=== PATIENT | male | born 1955 | race Caucasian/White ===

== ENCOUNTER 2017-04-10 17:30 | Inpatient (IN) | payer MEDICARE, OTHER ==
[~2017-04-10] VITALS: Ht 182.9 cm; Wt 96.7 kg
[~2017-04-10 17:30] MED LIST: ATROPINE SULFATE 0.1 MG/ML 10 ML SYRINGE IVP ONE; ETOMIDATE 2 MG/ML 10 ML VIAL IVP ONE; SUCCINYLCHOLINE CHLORIDE 20 MG/ML 10 ML VIAL IVP ONE
[2017-04-10] MEDS ORDERED: PROPOFOL 1000 MG/ISO-OSM 100 ML IV ONE (17:40)
[2017-04-10] MEDS ORDERED: SUCCINYLCHOLINE CHLORIDE 20 MG/ML 10 ML VIAL IVP ONE (17:45)
[2017-04-10] MEDS ORDERED: ATROPINE SULFATE 0.1 MG/ML 10 ML SYRINGE IVP ONE (17:45)
[2017-04-10] MEDS ORDERED: ETOMIDATE 2 MG/ML 10 ML VIAL IVP ONE (17:45)
[2017-04-10] MEDS ORDERED: SODIUM CHLORIDE 0.9% 1,000 ML IV ONE (17:45)
[2017-04-10] MEDS ORDERED: 0.9% SODIUM CHLORIDE 10 ML SYRINGE IVP PRN ×2 (17:45→21:00)
[2017-04-10] MEDS ORDERED: ENOX40DI9 SQ (17:51)
[2017-04-10] MEDS ORDERED: POT25TAB5 PO (17:51)
[2017-04-10] MEDS ORDERED: SENN-175 PO (17:51)
[2017-04-10] MEDS ORDERED: NICO1PAT49 TD (17:51)
[2017-04-10] MEDS ORDERED: OXYC10 PO (17:51)
[2017-04-10] MEDS ORDERED: LEVO25TA9 PO (17:51)
[2017-04-10] MEDS ORDERED: LISI-662 PO (17:51)
[2017-04-10] MEDS ORDERED: METO25 PO (17:51)
[2017-04-10] MEDS ORDERED: ASPI81TA42 PO (17:51)
[2017-04-10] MEDS ORDERED: ALPR0.5T8 PO (17:51)
[2017-04-10] MEDS ORDERED: FURO20 PO (17:51)
[2017-04-10] MEDS ORDERED: IPRNEB IH (17:51)
[2017-04-10] MEDS ORDERED: ATOR40TA28 PO (17:51)
[2017-04-10 17:53] LABS: EOSINOPHILS % (AUTO) 2.3 % (1.0-6.0); HEMATOCRIT 40.4 % (41-53); HEMOGLOBIN 13.6 g/dL (13.5-17.5); LYMPHOCYTES # (AUTO) 1.5 K/uL (1.0-4.8); LYMPHOCYTES % (AUTO) 22.1 % (22.0-44.0); MEAN CORPUSCULAR HGB CONC 33.7 G/dL (31.0-37.0); MEAN CORPUSCULAR VOLUME 89 fL (80-100); MONOCYTES # (AUTO) 0.7 K/uL (0.1-1.0); MONOCYTES % (AUTO) 10.3 % (2.0-9.0); NEUTROPHILS # (AUTO) 4.4 K/uL (1.8-7.7); NEUTROPHILS % (AUTO) 64.3 % (40.0-70.0); PLATELET COUNT (AUTO) 125 K/uL (150-450); RED BLOOD CELL COUNT(AUTO) 4.54 MIL/uL (4.50-5.90); RED CELL DISTRIBUTION WIDTH 15.3 % (11.5-14.5)
[2017-04-10] MEDS ORDERED: PHENYLEPHRINE 200 MG/D5%-WATER 250 ML IV ONE (17:57)
[2017-04-10 17:58] LABS: APPEARANCE,URINE CLEAR (CLEAR); BILIRUBIN,URINE NEGATIVE (NEGATIVE); GLUCOSE, URINE (UA) NEGATIVE (NEGATIVE); KETONES,URINE NEGATIVE (NEGATIVE); LEUKOCYTE ESTERASE ,URINE NEGATIVE (NEGATIVE); NITRATE,URINE NEGATIVE (NEGATIVE); OCCULT BLOOD,URINE NEGATIVE (NEGATIVE); PROTEIN,URINE NEGATIVE (NEGATIVE); UROBILINOGEN,URINE 0.2 mg/dL (<=1.0)
[2017-04-10] MEDS ORDERED: KDUR10 PO (18:00)
[2017-04-10 18:02] LABS: AMPHET/METH SCREEN,URINE NEGATIVE (NEGATIVE); ANION GAP 5 mmol/L (8-16); BARBITURATE SCREEN, URINE NEGATIVE (NEGATIVE); BENZODIAZEPINES SCREEN,URINE POSITIVE (NEGATIVE); CALCIUM, TOTAL 8.8 mg/dL (8.8-10.5); CANNABINOID SCREEN,URINE NEGATIVE (NEGATIVE); CARBON DIOXIDE 29 mmol/L (22-29); CHLORIDE 103 mmol/L (98-107); COCAINE SCREEN,URINE NEGATIVE (NEGATIVE); CREATININE 1.02 mg/dL (0.60-1.30); GLOMERULAR FILTR. RATE CALC > 60 mL/min (>60); GLUCOSE,RANDOM 109 mg/dL (70-110); METHADONE SCREEN, URINE NEGATIVE (NEGATIVE); OPIATE SCREEN,URINE POSITIVE (NEGATIVE); POTASSIUM 5.5 mmol/L (3.5-5.1); SODIUM SERUM 137 mmol/L (136-145); UREA NITROGEN, BLOOD 25 mg/dL (7-18)
[2017-04-10 18:04] LABS: INR 1.1 (0.9-1.1); PHENCYCLIDINE SCREEN,URINE NEGATIVE (NEGATIVE); PROTHROMBIN TIME 11.4 SEC (9.4-11.6)
[2017-04-10 18:10] LABS: LACTIC ACID 1.7 mmol/L (0.4-2.0); TROPONIN I 0.03 ng/mL (0.00-0.05)
[2017-04-10] MEDS: PROPOFOL 1000 MG/ISO-OSM 100 ML IV PRN ×3 (18:13→23:08)
[2017-04-10] MEDS ORDERED: PHENYLEPHRINE 200 MG/D5%-WATER 250 ML IV PRN (18:15)
[2017-04-10 18:16] LABS: B-TYPE NATRIURETIC PEPTIDE 130 pg/mL (0-100)
[2017-04-10 18:20] LABS: ALANINE AMINOTRANSFERASE 162 U/L (12-78); ALBUMIN 3.2 g/dL (3.4-5.0); ALKALINE PHOSPHATASE 96 U/L (46-116); ASPARTATE AMINOTRANSFERASE 145 U/L (15-37); BILIRUBIN,TOTAL 0.7 mg/dL (0.1-1.0); TOTAL PROTEIN, SERUM 7.8 g/dL (6.4-8.2)
[2017-04-10 18:21] LABS: CREATINE KINASE, TOTAL 1545 U/L (39-308)
[2017-04-10 18:34] LABS: D-DIMER 0.42 mg/L FEU (0.00-0.50)
[2017-04-10] MEDS ORDERED: IOVERSOL 350 MG/ML 100 ML VIAL ONE (18:38)
[2017-04-10 18:41] LABS: CKMB RELATIVE INDEX 0.9 % (0.0-4.0); CREATINE KINASE MB 14.4 ng/mL (0-5)
[2017-04-10] MEDS ORDERED: [UNRECOGNIZED DRUG - CODE] TP (19:11)
[2017-04-10 19:49] LABS: ABG A-A DIFF O2 132.5 mmHg (10-20.0); ABG BASE EXCESS -0.2 mmol/L (-2.0-3.0); ABG CARBOXYHEMOGLOBIN 1.9 % (0.0-1.5); ABG HCO3 24.6 mmol/L (22.0-26.0); ABG METHEMOGLOBIN 0.3 % (0.0-1.5); ABG OXYGEN CONTENT 17.9 mL/dL (15.0-23.0); ABG OXYGEN SATURATION 98.4 % (95.0-98.0); ABG OXYHEMOGLOBIN 96.2 % (94.0-100.0); ABG PCO2 36 mmHg (35-45); ABG PH 7.438 (7.35-7.450); ABG TOTAL HEMOGLOBIN 13.1 G/dL (12.0-18.0); O2 DEVICE,BLOOD GAS VENTILATOR (ROOM AIR); PEEP,BG 5 cm H2O; PO2, ARTERIAL BG 111.1 mmHg (79.0-87.0); SITE, BLOOD GAS RT FEMORAL; SOURCE, BLOOD GAS ARTERIAL; TEMPERATURE, FAHRENHEIT, BG 98.5 FAHREN (96.0-98.6); VT, ABG 600 ml
[2017-04-10] MEDS ORDERED: ONDANSETRON HCL 4 MG/2 ML VIAL IVP PRN ×2 (21:00→21:15)
[2017-04-10] MEDS ORDERED: ACETAMINOPHEN 325 MG TABLET PO PRN (21:00)
[2017-04-10] MEDS ORDERED: ALBUTEROL SULFATE 2.5 MG/0.5 ML NEB SOLUTION NEB PRN (21:15)
[2017-04-10] MEDS ORDERED: IPRATROPIUM BROMIDE 0.5 MG/2.5 ML NEB SOLUTION NEB PRN (21:15)
[2017-04-10] MEDS ORDERED: BISACODYL 10 MG RECTAL RECTAL SUPPOSITORY PR PRN (21:15)
[2017-04-10 21:55] LABS: INFLUENZA TYPE A NEGATIVE FOR TYPE A (NEGATIVE); INFLUENZA TYPE B NEGATIVE FOR TYPE B (NEGATIVE)
[2017-04-10 22:00] VITALS: BP 135/79
[2017-04-10] MEDS: HEPARIN SODIUM,PORCINE 5,000 UNITS/ML VIAL SQ SCH (23:06)
[2017-04-10] MEDS: SODIUM CHLORIDE 0.9% 1,000 ML IV SCH (23:07)
[2017-04-11] VITALS: BP 108/59
[2017-04-11] MEDS ORDERED: INFLUENZA VIRUS VACCINE QVS 2017-18 (3YR+)/PF 60 MCG/0.5 ML SYRINGE IM ONE (00:45)
[2017-04-11] MEDS ORDERED: PNEUMOCOCCAL VACCINE POLYVALENT 0.5 ML VIAL [PPSV23] IM ONE (00:45)
[2017-04-11 04:00] VITALS: BP 164/104
[2017-04-11 06:31] LABS: BASOPHILS % (AUTO) 0.7 % (0.0-2.0); EOSINOPHILS % (AUTO) 1.7 % (1.0-6.0); HEMATOCRIT 42.8 % (41-53); HEMOGLOBIN 14.6 g/dL (13.5-17.5); LYMPHOCYTES % (AUTO) 16.7 % (22.0-44.0); MEAN CORPUSCULAR HGB CONC 34.2 G/dL (31.0-37.0); MEAN CORPUSCULAR VOLUME 91 fL (80-100); MONOCYTES # (AUTO) 0.5 K/uL (0.1-1.0); MONOCYTES % (AUTO) 8.8 % (2.0-9.0); NEUTROPHILS # (AUTO) 4.4 K/uL (1.8-7.7); NEUTROPHILS % (AUTO) 72.1 % (40.0-70.0); PLATELET COUNT (AUTO) 102 K/uL (150-450); RED BLOOD CELL COUNT(AUTO) 4.71 MIL/uL (4.50-5.90); RED CELL DISTRIBUTION WIDTH 15.4 % (11.5-14.5)
[2017-04-11] MEDS: LEVOTHYROXINE SODIUM 25 MCG TABLET PO SCH (07:24)
[2017-04-11] MEDS: SODIUM CHLORIDE 0.9% 1,000 ML IV SCH ×2 (07:26→16:09)
[2017-04-11] MEDS: PROPOFOL 1000 MG/ISO-OSM 100 ML IV PRN ×4 (07:26→18:58)
[2017-04-11 07:27] LABS: ALANINE AMINOTRANSFERASE 153 U/L (12-78); ALBUMIN 3.2 g/dL (3.4-5.0); ALKALINE PHOSPHATASE 95 U/L (46-116); ANION GAP 7 mmol/L (8-16); ASPARTATE AMINOTRANSFERASE 136 U/L (15-37); BILIRUBIN,TOTAL 0.8 mg/dL (0.1-1.0); CARBON DIOXIDE 26 mmol/L (22-29); CHLORIDE 104 mmol/L (98-107); CHOL/HDL RATIO 3.6 (4.2-7.3); CHOLESTEROL 115 mg/dL (131-200); CREATINE KINASE MB 6.2 ng/mL (0-5); CREATININE 0.84 mg/dL (0.60-1.30); FREE T4 (FREE THYROXINE) 1.05 ng/dL (0.76-1.46); GLOMERULAR FILTR. RATE CALC > 60 mL/min (>60); GLUCOSE,RANDOM 96 mg/dL (70-110); HDL CHOLESTEROL 32 mg/dL (40-60); LDL CHOL (CALC.) 60 mg/dL (0-130); PHOSPHORUS 2.7 mg/dL (2.5-4.9); POTASSIUM 4.6 mmol/L (3.5-5.1); SODIUM SERUM 137 mmol/L (136-145); THYROID STIMULATING HORMONE 22.81 uIU/mL (0.36-3.74); TOTAL PROTEIN, SERUM 7.9 g/dL (6.4-8.2); TRIGLYCERIDES 114 mg/dL (15-150); UREA NITROGEN, BLOOD 21 mg/dL (7-18)
[2017-04-11 07:36] LABS: CKMB RELATIVE INDEX 0.5 % (0.0-4.0); CREATINE KINASE, TOTAL 1359 U/L (39-308)
[2017-04-11] MEDS: ACETAMINOPHEN 650 MG/20.3 ML SOLUTION UDCUP PO PRN ×3 (07:46→21:18)
[2017-04-11 08:00] VITALS: BP 135/85
[2017-04-11] MEDS: PANTOPRAZOLE SODIUM 40 MG/VIAL IVP SCH (08:20)
[2017-04-11] MEDS: HEPARIN SODIUM,PORCINE 5,000 UNITS/ML VIAL SQ SCH (08:20)
[2017-04-11] MEDS: SENNA 187 MG TABLET PO SCH (08:21)
[2017-04-11] MEDS: ASPIRIN 81 MG EC TABLET PO SCH (08:21)
[2017-04-11] MEDS: PIPERACILLIN/TAZO 3.375 GM/D5W 50 ML IV SCH ×3 (08:23→21:18)
[2017-04-11 11:02] LABS: FOLATE SERUM 15.1 ng/mL (5.4-)
[2017-04-11 12:00] VITALS: BP 100/62
[2017-04-11 14:13] LABS: ABG A-A DIFF O2 122.1 mmHg (10-20.0); ABG BASE EXCESS -2.1 mmol/L (-2.0-3.0); ABG CARBOXYHEMOGLOBIN 1.1 % (0.0-1.5); ABG HCO3 23.3 mmol/L (22.0-26.0); ABG METHEMOGLOBIN 0.3 % (0.0-1.5); ABG OXYGEN CONTENT 17.1 mL/dL (15.0-23.0); ABG OXYGEN SATURATION 95.4 % (95.0-98.0); ABG OXYHEMOGLOBIN 94.1 % (94.0-100.0); ABG PCO2 36 mmHg (35-45); ABG PH 7.415 (7.35-7.450); ABG TOTAL HEMOGLOBIN 12.9 G/dL (12.0-18.0); PO2, ARTERIAL BG 84.2 mmHg (79.0-87.0); SOURCE, BLOOD GAS ARTERIAL; TEMPERATURE, FAHRENHEIT, BG 101.6 FAHREN (96.0-98.6)
[2017-04-11 14:14] LABS: O2 DEVICE,BLOOD GAS VENTILATOR (ROOM AIR); PEEP,BG 5 cm H2O; SITE, BLOOD GAS RT BRACHIAL; VT, ABG 600 ml
[2017-04-11] MEDS ORDERED: HEPARIN SODIUM,PORCINE 5,000 UNITS/ML VIAL IVP ONE (15:15)
[2017-04-11 16:00] VITALS: BP 131/66
[2017-04-11] MEDS: HEPARIN SODIUM 25000 UNITS/D5W 250 ML IV PRN (16:05)
[2017-04-11 16:17] LABS: BASOPHILS % (AUTO) 0.5 % (0.0-2.0); EOSINOPHILS % (AUTO) 1.1 % (1.0-6.0); HEMATOCRIT 42.2 % (41-53); HEMOGLOBIN 14.4 g/dL (13.5-17.5); LYMPHOCYTES % (AUTO) 11.2 % (22.0-44.0); MEAN CORPUSCULAR HEMOGLOBIN 30.3 pg (26.0-34.0); MEAN CORPUSCULAR VOLUME 89 fL (80-100); MONOCYTES # (AUTO) 1.3 K/uL (0.1-1.0); MONOCYTES % (AUTO) 15.7 % (2.0-9.0); NEUTROPHILS # (AUTO) 6.1 K/uL (1.8-7.7); NEUTROPHILS % (AUTO) 71.5 % (40.0-70.0); PLATELET COUNT (AUTO) 86 K/uL (150-450); RED BLOOD CELL COUNT(AUTO) 4.74 MIL/uL (4.50-5.90); RED CELL DISTRIBUTION WIDTH 15.3 % (11.5-14.5)
[2017-04-11 16:26] LABS: PROTHROMBIN TIME 10.8 SEC (9.4-11.6)
[2017-04-11] MEDS: MORPHINE SULFATE 2 MG/ML SYRINGE IVP PRN (16:29)
[2017-04-11 16:35] LABS: PLATELET MORPHOLOGY COMMENT DECREASED
[2017-04-11] MEDS ORDERED: DILTIAZEM HCL 5 MG/ML 5 ML VIAL IVP PRN (18:00)
[2017-04-11 20:00] VITALS: BP 131/76
[2017-04-12] VITALS: BP 108/62
[2017-04-12] MEDS: PROPOFOL 1000 MG/ISO-OSM 100 ML IV PRN ×4 (00:03→15:59)
[2017-04-12] MEDS: PIPERACILLIN/TAZO 3.375 GM/D5W 50 ML IV SCH ×4 (02:23→20:44)
[2017-04-12] MEDS: SODIUM CHLORIDE 0.9% 1,000 ML IV SCH ×2 (02:23→13:41)
[2017-04-12] MEDS: ACETAMINOPHEN 650 MG/20.3 ML SOLUTION UDCUP PO PRN ×2 (03:21→09:50)
[2017-04-12 04:00] VITALS: BP 113/63
[2017-04-12 05:33] LABS: BASOPHILS % (AUTO) 0.6 % (0.0-2.0); EOSINOPHILS % (AUTO) 1.1 % (1.0-6.0); HEMATOCRIT 37.5 % (41-53); LYMPHOCYTES # (AUTO) 0.8 K/uL (1.0-4.8); LYMPHOCYTES % (AUTO) 10.7 % (22.0-44.0); MEAN CORPUSCULAR HEMOGLOBIN 30.5 pg (26.0-34.0); MEAN CORPUSCULAR HGB CONC 34.6 G/dL (31.0-37.0); MEAN CORPUSCULAR VOLUME 88 fL (80-100); MONOCYTES # (AUTO) 1.1 K/uL (0.1-1.0); MONOCYTES % (AUTO) 15.3 % (2.0-9.0); NEUTROPHILS # (AUTO) 5.2 K/uL (1.8-7.7); NEUTROPHILS % (AUTO) 72.3 % (40.0-70.0); PLATELET COUNT (AUTO) 79 K/uL (150-450); RED BLOOD CELL COUNT(AUTO) 4.26 MIL/uL (4.50-5.90); RED CELL DISTRIBUTION WIDTH 14.8 % (11.5-14.5)
[2017-04-12] MEDS: LEVOTHYROXINE SODIUM 25 MCG TABLET PO SCH (05:57)
[2017-04-12] MEDS: HEPARIN SODIUM,PORCINE 5,000 UNITS/ML VIAL IVP PRN (05:57)
[2017-04-12] MEDS: PANTOPRAZOLE SODIUM 40 MG/VIAL IVP SCH (07:55)
[2017-04-12] MEDS: ASPIRIN 81 MG EC TABLET PO SCH (07:55)
[2017-04-12] MEDS: SENNA 187 MG TABLET PO SCH (07:56)
[2017-04-12 08:00] VITALS: BP 138/81
[2017-04-12] MEDS: HEPARIN SODIUM 25000 UNITS/D5W 250 ML IV PRN ×2 (08:39→21:34)
[2017-04-12 09:54] LABS: ABG A-A DIFF O2 91.8 mmHg (10-20.0); ABG BASE EXCESS -2.4 mmol/L (-2.0-3.0); ABG CARBOXYHEMOGLOBIN 0.6 % (0.0-1.5); ABG HCO3 23.4 mmol/L (22.0-26.0); ABG OXYGEN CONTENT 20.6 mL/dL (15.0-23.0); ABG OXYGEN SATURATION 98.3 % (95.0-98.0); ABG OXYHEMOGLOBIN 97.7 % (94.0-100.0); ABG PCO2 31 mmHg (35-45); ABG PH 7.458 (7.35-7.450); ABG TOTAL HEMOGLOBIN 14.9 G/dL (12.0-18.0); PO2, ARTERIAL BG 121.7 mmHg (79.0-87.0); SOURCE, BLOOD GAS ARTERIAL; TEMPERATURE, FAHRENHEIT, BG 98.6 FAHREN (96.0-98.6)
[2017-04-12 10:00] LABS: O2 DEVICE,BLOOD GAS VENTILATOR (ROOM AIR); PEEP,BG 5 cm H2O; SITE, BLOOD GAS RT RADIAL; VT, ABG 600 ml
[2017-04-12 12:00] VITALS: BP 100/66
[2017-04-12] MEDS ORDERED: VANCOMYCIN HCL 1.5 GM in DEXTROSE 5%-WATER 250 ML IV ONE (12:00)
[2017-04-12 16:00] VITALS: BP 160/94
[2017-04-12 20:00] VITALS: BP 177/93
[2017-04-12] MEDS: VANCOMYCIN HCL 1.5 GM in DEXTROSE 5%-WATER 250 ML IV SCH (20:18)
[2017-04-12] MEDS: MIDAZOLAM HCL 2 MG/2 ML VIAL IVP PRN (21:31)
[2017-04-13] VITALS (7 sets, daily range): BP systolic 130–179; BP diastolic 67–100
[2017-04-13] MEDS: SODIUM CHLORIDE 0.9% 1,000 ML IV SCH ×2 (00:07→17:17)
[2017-04-13] MEDS: PROPOFOL 1000 MG/ISO-OSM 100 ML IV PRN ×6 (00:47→23:42)
[2017-04-13] MEDS: PIPERACILLIN/TAZO 3.375 GM/D5W 50 ML IV SCH ×4 (03:15→21:11)
[2017-04-13] MEDS: LEVOTHYROXINE SODIUM 25 MCG TABLET PO SCH (05:50)
[2017-04-13 06:05] LABS: ANION GAP 9 mmol/L (8-16); CALCIUM, TOTAL 8.4 mg/dL (8.8-10.5); CARBON DIOXIDE 25 mmol/L (22-29); CHLORIDE 108 mmol/L (98-107); CREATININE 0.55 mg/dL (0.60-1.30); GLOMERULAR FILTR. RATE CALC > 60 mL/min (>60); GLUCOSE,RANDOM 165 mg/dL (70-110); POTASSIUM 3.7 mmol/L (3.5-5.1); SODIUM SERUM 142 mmol/L (136-145); UREA NITROGEN, BLOOD 7 mg/dL (7-18)
[2017-04-13] MEDS: VANCOMYCIN HCL 1.5 GM in DEXTROSE 5%-WATER 250 ML IV SCH ×2 (07:00→19:41)
[2017-04-13 07:07] LABS: BASOPHILS % (AUTO) 0.5 % (0.0-2.0); EOSINOPHILS % (AUTO) 1.8 % (1.0-6.0); HEMATOCRIT 35.6 % (41-53); HEMOGLOBIN 12.3 g/dL (13.5-17.5); LYMPHOCYTES # (AUTO) 0.9 K/uL (1.0-4.8); LYMPHOCYTES % (AUTO) 12.7 % (22.0-44.0); MEAN CORPUSCULAR HEMOGLOBIN 30.5 pg (26.0-34.0); MEAN CORPUSCULAR HGB CONC 34.4 G/dL (31.0-37.0); MEAN CORPUSCULAR VOLUME 89 fL (80-100); MONOCYTES # (AUTO) 0.6 K/uL (0.1-1.0); MONOCYTES % (AUTO) 8.9 % (2.0-9.0); NEUTROPHILS # (AUTO) 5.5 K/uL (1.8-7.7); NEUTROPHILS % (AUTO) 76.1 % (40.0-70.0); PLATELET COUNT (AUTO) 99 K/uL (150-450); RED BLOOD CELL COUNT(AUTO) 4.02 MIL/uL (4.50-5.90); RED CELL DISTRIBUTION WIDTH 14.8 % (11.5-14.5)
[2017-04-13] MEDS: ASPIRIN 81 MG EC TABLET PO SCH (08:38)
[2017-04-13] MEDS: PANTOPRAZOLE SODIUM 40 MG/VIAL IVP SCH (08:38)
[2017-04-13] MEDS: HEPARIN SODIUM,PORCINE 5,000 UNITS/ML VIAL IVP PRN (08:40)
[2017-04-13] MEDS: SENNA 187 MG TABLET PO SCH (08:42)
[2017-04-13] MEDS: HEPARIN SODIUM 25000 UNITS/D5W 250 ML IV PRN (11:52)
[2017-04-13] MEDS ORDERED: SODIUM CHLORIDE 0.9% 250 ML IV ONE (17:19)
[2017-04-13] MEDS: LORazepam 2 MG/ML VIAL IVP PRN (21:12)
[2017-04-14] VITALS (9 sets, daily range): BP systolic 108–172; BP diastolic 68–104
[2017-04-14] MEDS: HEPARIN SODIUM 25000 UNITS/D5W 250 ML IV PRN ×2 (02:03→16:38)
[2017-04-14] MEDS: PIPERACILLIN/TAZO 3.375 GM/D5W 50 ML IV SCH ×4 (02:57→20:34)
[2017-04-14] MEDS: PROPOFOL 1000 MG/ISO-OSM 100 ML IV PRN ×4 (02:57→19:48)
[2017-04-14] MEDS: LEVOTHYROXINE SODIUM 25 MCG TABLET PO SCH (05:48)
[2017-04-14 06:06] LABS: B-TYPE NATRIURETIC PEPTIDE 132 pg/mL (0-100)
[2017-04-14] MEDS: SODIUM CHLORIDE 0.9% 1,000 ML IV SCH ×2 (06:15→20:34)
[2017-04-14 06:16] LABS: ANION GAP 8 mmol/L (8-16); CALCIUM, TOTAL 8.3 mg/dL (8.8-10.5); CARBON DIOXIDE 24 mmol/L (22-29); CHLORIDE 108 mmol/L (98-107); CREATINE KINASE MB 1.8 ng/mL (0-5); CREATINE KINASE, TOTAL 117 U/L (39-308); CREATININE 0.47 mg/dL (0.60-1.30); GLOMERULAR FILTR. RATE CALC > 60 mL/min (>60); GLUCOSE,RANDOM 147 mg/dL (70-110); POTASSIUM 3.6 mmol/L (3.5-5.1); SODIUM SERUM 140 mmol/L (136-145); UREA NITROGEN, BLOOD 8 mg/dL (7-18); VANCOMYCIN,RANDOM 12.7 mcg/mL (25.0-50.0)
[2017-04-14] MEDS: VANCOMYCIN HCL 1.5 GM in DEXTROSE 5%-WATER 250 ML IV SCH (07:52)
[2017-04-14 08:05] LABS: ABG A-A DIFF O2 119.8 mmHg (10-20.0); ABG CARBOXYHEMOGLOBIN 0.7 % (0.0-1.5); ABG METHEMOGLOBIN 0.3 % (0.0-1.5); ABG OXYGEN CONTENT 15.7 mL/dL (15.0-23.0); ABG OXYGEN SATURATION 97.4 % (95.0-98.0); ABG OXYHEMOGLOBIN 96.4 % (94.0-100.0); ABG PCO2 34 mmHg (35-45); ABG PH 7.448 (7.35-7.450); ABG TOTAL HEMOGLOBIN 11.5 G/dL (12.0-18.0); PO2, ARTERIAL BG 90.2 mmHg (79.0-87.0); SOURCE, BLOOD GAS ARTERIAL; TEMPERATURE, FAHRENHEIT, BG 98.6 FAHREN (96.0-98.6)
[2017-04-14 08:09] LABS: O2 DEVICE,BLOOD GAS VENTILATOR (ROOM AIR); SITE, BLOOD GAS RT RADIAL; VT, ABG 600 ml
[2017-04-14 08:10] LABS: PEEP,BG 5 cm H2O
[2017-04-14] MEDS: PANTOPRAZOLE SODIUM 40 MG/VIAL IVP SCH (08:48)
[2017-04-14] MEDS: ASPIRIN 81 MG EC TABLET PO SCH (08:49)
[2017-04-14] MEDS: SENNA 187 MG TABLET PO SCH (08:49)
[2017-04-14] MEDS: MORPHINE SULFATE 2 MG/ML SYRINGE IVP PRN ×2 (10:36→19:47)
[2017-04-14 13:08] LABS: ORGANISM ID Not indicated.; S PNEUMO SOURCE Urine; STREP PNEUMONIAE AG URINE Negative (Negative); STREP.PNEUMO BODY FLUID CULT. Not Indicated
[2017-04-14 14:19] LABS: LEGIONELLA PNEUMO AG URINE Negative (Negative)
[2017-04-14] MEDS: VANCOMYCIN HCL 1 GM/D5% WATER 200 ML IV SCH (16:07)
[2017-04-14] MEDS: LORazepam 2 MG/ML VIAL IVP PRN ×2 (16:07→21:46)
[2017-04-15] VITALS: BP 123/69
[2017-04-15] MEDS: PROPOFOL 1000 MG/ISO-OSM 100 ML IV PRN ×6 (00:06→21:42)
[2017-04-15] MEDS: VANCOMYCIN HCL 1 GM/D5% WATER 200 ML IV SCH ×4 (01:07→23:14)
[2017-04-15] MEDS: LORazepam 2 MG/ML VIAL IVP PRN ×2 (02:50→19:16)
[2017-04-15] MEDS: PIPERACILLIN/TAZO 3.375 GM/D5W 50 ML IV SCH ×4 (02:51→20:13)
[2017-04-15] MEDS: HEPARIN SODIUM 25000 UNITS/D5W 250 ML IV PRN ×2 (03:58→20:14)
[2017-04-15 04:00] VITALS: BP 136/68
[2017-04-15] MEDS: SODIUM CHLORIDE 0.9% 1,000 ML IV SCH ×2 (05:16→20:12)
[2017-04-15] MEDS: LEVOTHYROXINE SODIUM 25 MCG TABLET PO SCH (05:16)
[2017-04-15 06:31] LABS: BASOPHILS % (AUTO) 0.9 % (0.0-2.0); EOSINOPHILS % (AUTO) 4.2 % (1.0-6.0); HEMATOCRIT 30.4 % (41-53); LYMPHOCYTES # (AUTO) 0.6 K/uL (1.0-4.8); LYMPHOCYTES % (AUTO) 19.1 % (22.0-44.0); MEAN CORPUSCULAR HEMOGLOBIN 30.8 pg (26.0-34.0); MEAN CORPUSCULAR VOLUME 88 fL (80-100); MONOCYTES # (AUTO) 0.2 K/uL (0.1-1.0); MONOCYTES % (AUTO) 8.4 % (2.0-9.0); NEUTROPHILS % (AUTO) 67.4 % (40.0-70.0); PLATELET COUNT (AUTO) 101 K/uL (150-450); RED BLOOD CELL COUNT(AUTO) 3.45 MIL/uL (4.50-5.90); RED CELL DISTRIBUTION WIDTH 14.8 % (11.5-14.5)
[2017-04-15 06:50] LABS: ANION GAP 7 mmol/L (8-16); CALCIUM, TOTAL 8.5 mg/dL (8.8-10.5); CARBON DIOXIDE 25 mmol/L (22-29); CHLORIDE 109 mmol/L (98-107); CREATININE 0.52 mg/dL (0.60-1.30); GLOMERULAR FILTR. RATE CALC > 60 mL/min (>60); GLUCOSE,RANDOM 139 mg/dL (70-110); POTASSIUM 3.5 mmol/L (3.5-5.1); SODIUM SERUM 141 mmol/L (136-145); UREA NITROGEN, BLOOD 7 mg/dL (7-18)
[2017-04-15 07:26] LABS: HEMOGLOBIN 10.6 g/dL (13.5-17.5)
[2017-04-15 08:00] VITALS: BP 134/79
[2017-04-15] MEDS: SENNA 187 MG TABLET PO SCH (09:00)
[2017-04-15] MEDS: ASPIRIN 81 MG EC TABLET PO SCH (09:23)
[2017-04-15] MEDS: PANTOPRAZOLE SODIUM 40 MG/VIAL IVP SCH (09:23)
[2017-04-15 12:00] VITALS: BP 186/103
[2017-04-15 12:28] LABS: ABG A-A DIFF O2 75.4 mmHg (10-20.0); ABG BASE EXCESS -1.3 mmol/L (-2.0-3.0); ABG CARBOXYHEMOGLOBIN 0.3 % (0.0-1.5); ABG HCO3 23.9 mmol/L (22.0-26.0); ABG METHEMOGLOBIN 0.3 % (0.0-1.5); ABG OXYGEN CONTENT 16.1 mL/dL (15.0-23.0); ABG OXYGEN SATURATION 98.7 % (95.0-98.0); ABG OXYHEMOGLOBIN 98.1 % (94.0-100.0); ABG PCO2 34 mmHg (35-45); ABG TOTAL HEMOGLOBIN 11.5 G/dL (12.0-18.0); CPAP, BG 0 cm H2O; O2 DEVICE,BLOOD GAS VENTILATOR (ROOM AIR); PO2, ARTERIAL BG 135.4 mmHg (79.0-87.0); PRESSURE SUPPORT, BG 8 cm H2O; SITE, BLOOD GAS LFT RADIAL; SOURCE, BLOOD GAS ARTERIAL; TEMPERATURE, FAHRENHEIT, BG 98.4 FAHREN (96.0-98.6); VENT MODE, BG CPAP (ROOM AIR)
[2017-04-15 16:00] VITALS: BP 120/69
[2017-04-15] MEDS: ACETYLCYSTEINE 20% 200 MG/ML 4 ML NEB SOLUTION NEB SCH ×2 (16:31→23:52)
[2017-04-15] MEDS: ALBUTEROL SULFATE 2.5 MG/0.5 ML NEB SOLUTION NEB SCH ×2 (16:31→23:52)
[2017-04-15 20:00] VITALS: BP 153/86
[2017-04-16] VITALS (9 sets, daily range): BP systolic 97–167; BP diastolic 56–97
[2017-04-16] MEDS: PROPOFOL 1000 MG/ISO-OSM 100 ML IV PRN ×5 (02:45→23:30)
[2017-04-16] MEDS: PIPERACILLIN/TAZO 3.375 GM/D5W 50 ML IV SCH ×3 (02:45→15:01)
[2017-04-16] MEDS: LORazepam 2 MG/ML VIAL IVP PRN ×3 (02:51→20:31)
[2017-04-16 04:36] LABS: C.DIFF GDH ANTIGEN, Stool Positive (Negative)
[2017-04-16 04:38] LABS: C.DIFF TOXINS A&B, Stool Negative (Negative)
[2017-04-16] MEDS: LEVOTHYROXINE SODIUM 25 MCG TABLET PO SCH (05:45)
[2017-04-16] MEDS: ACETYLCYSTEINE 20% 200 MG/ML 4 ML NEB SOLUTION NEB SCH ×3 (07:21→23:41)
[2017-04-16] MEDS: ALBUTEROL SULFATE 2.5 MG/0.5 ML NEB SOLUTION NEB SCH ×3 (07:21→23:41)
[2017-04-16] MEDS: SODIUM CHLORIDE 0.9% 1,000 ML IV SCH ×2 (08:24→19:02)
[2017-04-16] MEDS: PANTOPRAZOLE SODIUM 40 MG/VIAL IVP SCH (08:24)
[2017-04-16] MEDS: VANCOMYCIN HCL 1 GM/D5% WATER 200 ML IV SCH ×3 (08:24→23:31)
[2017-04-16] MEDS: ASPIRIN 81 MG EC TABLET PO SCH (08:25)
[2017-04-16] MEDS: LACTOBACILLUS ACIDOPHILUS/BULGARICUS GRANULES PACKET PO SCH (08:25)
[2017-04-16] MEDS: SENNA 187 MG TABLET PO SCH (08:25)
[2017-04-16] MEDS: HEPARIN SODIUM 25000 UNITS/D5W 250 ML IV PRN ×2 (08:27→20:30)
[2017-04-16 08:31] LABS: ANION GAP 7 mmol/L (8-16); CALCIUM, TOTAL 8.6 mg/dL (8.8-10.5); CARBON DIOXIDE 25 mmol/L (22-29); CHLORIDE 108 mmol/L (98-107); CREATININE 0.48 mg/dL (0.60-1.30); GLOMERULAR FILTR. RATE CALC > 60 mL/min (>60); GLUCOSE,RANDOM 137 mg/dL (70-110); POTASSIUM 3.6 mmol/L (3.5-5.1); SODIUM SERUM 140 mmol/L (136-145); UREA NITROGEN, BLOOD 7 mg/dL (7-18)
[2017-04-16] MEDS: HEPARIN SODIUM,PORCINE 5,000 UNITS/ML VIAL IVP PRN (09:40)
[2017-04-16] MEDS: MetroNIDAZOLE 500 MG TABLET PO SCH ×3 (10:53→23:32)
[2017-04-16] MEDS: MORPHINE SULFATE 2 MG/ML SYRINGE IVP PRN ×3 (12:58→18:59)
[2017-04-16] MEDS: MIDAZOLAM HCL 2 MG/2 ML VIAL IVP PRN (14:37)
[2017-04-16] MEDS ORDERED: HydrALAZINE HCL 20 MG/ML VIAL IVP PRN (16:45)
[2017-04-17] VITALS (14 sets, daily range): BP systolic 131–182; BP diastolic 55–116
[2017-04-17] MEDS: PROPOFOL 1000 MG/ISO-OSM 100 ML IV PRN ×4 (03:01→12:50)
[2017-04-17] MEDS: SODIUM CHLORIDE 0.9% 1,000 ML IV SCH ×3 (03:01→22:31)
[2017-04-17 05:32] LABS: BASOPHILS % (AUTO) 0.8 % (0.0-2.0); EOSINOPHILS % (AUTO) 2.4 % (1.0-6.0); HEMATOCRIT 32.6 % (41-53); HEMOGLOBIN 11.2 g/dL (13.5-17.5); LYMPHOCYTES # (AUTO) 0.6 K/uL (1.0-4.8); LYMPHOCYTES % (AUTO) 17.6 % (22.0-44.0); MEAN CORPUSCULAR HEMOGLOBIN 30.3 pg (26.0-34.0); MEAN CORPUSCULAR HGB CONC 34.4 G/dL (31.0-37.0); MEAN CORPUSCULAR VOLUME 88 fL (80-100); MONOCYTES # (AUTO) 0.3 K/uL (0.1-1.0); MONOCYTES % (AUTO) 8.8 % (2.0-9.0); NEUTROPHILS # (AUTO) 2.5 K/uL (1.8-7.7); NEUTROPHILS % (AUTO) 70.4 % (40.0-70.0); PLATELET COUNT (AUTO) 98 K/uL (150-450); RED CELL DISTRIBUTION WIDTH 14.6 % (11.5-14.5)
[2017-04-17 06:09] LABS: ALANINE AMINOTRANSFERASE 60 U/L (12-78); ALBUMIN 2.5 g/dL (3.4-5.0); ALKALINE PHOSPHATASE 71 U/L (46-116); ANION GAP 8 mmol/L (8-16); ASPARTATE AMINOTRANSFERASE 37 U/L (15-37); BILIRUBIN,TOTAL 0.3 mg/dL (0.1-1.0); CALCIUM, TOTAL 8.7 mg/dL (8.8-10.5); CARBON DIOXIDE 26 mmol/L (22-29); CHLORIDE 110 mmol/L (98-107); GLOMERULAR FILTR. RATE CALC > 60 mL/min (>60); GLUCOSE,RANDOM 118 mg/dL (70-110); POTASSIUM 3.5 mmol/L (3.5-5.1); SODIUM SERUM 144 mmol/L (136-145); TOTAL PROTEIN, SERUM 6.9 g/dL (6.4-8.2); UREA NITROGEN, BLOOD 6 mg/dL (7-18); VANCOMYCIN,RANDOM 21.6 mcg/mL (25.0-50.0)
[2017-04-17] MEDS: LEVOTHYROXINE SODIUM 25 MCG TABLET PO SCH (06:51)
[2017-04-17] MEDS: MIDAZOLAM HCL 2 MG/2 ML VIAL IVP PRN ×4 (07:37→23:31)
[2017-04-17] MEDS: ALBUTEROL SULFATE 2.5 MG/0.5 ML NEB SOLUTION NEB SCH (07:39)
[2017-04-17] MEDS: ACETYLCYSTEINE 20% 200 MG/ML 4 ML NEB SOLUTION NEB SCH (07:40)
[2017-04-17] MEDS: SENNA 187 MG TABLET PO SCH (09:00)
[2017-04-17] MEDS: VANCOMYCIN HCL 1 GM/D5% WATER 200 ML IV SCH ×2 (09:13→15:55)
[2017-04-17] MEDS: MORPHINE SULFATE 2 MG/ML SYRINGE IVP PRN ×5 (09:14→22:31)
[2017-04-17] MEDS: LACTOBACILLUS ACIDOPHILUS/BULGARICUS GRANULES PACKET PO SCH (09:14)
[2017-04-17] MEDS: MetroNIDAZOLE 500 MG TABLET PO SCH ×3 (09:14→23:32)
[2017-04-17] MEDS: PANTOPRAZOLE SODIUM 40 MG/VIAL IVP SCH (09:14)
[2017-04-17] MEDS: ASPIRIN 81 MG EC TABLET PO SCH (09:14)
[2017-04-17] MEDS: HEPARIN SODIUM 25000 UNITS/D5W 250 ML IV PRN (10:16)
[2017-04-17 14:40] LABS: ABG A-A DIFF O2 71.8 mmHg (10-20.0); ABG BASE EXCESS -3.4 mmol/L (-2.0-3.0); ABG CARBOXYHEMOGLOBIN 0.3 % (0.0-1.5); ABG HCO3 22.2 mmol/L (22.0-26.0); ABG OXYGEN CONTENT 15.5 mL/dL (15.0-23.0); ABG OXYGEN SATURATION 98.5 % (95.0-98.0); ABG OXYHEMOGLOBIN 98.2 % (94.0-100.0); ABG PCO2 33 mmHg (35-45); ABG PH 7.426 (7.35-7.450); O2 DEVICE,BLOOD GAS VENTILATOR (ROOM AIR); PO2, ARTERIAL BG 139.9 mmHg (79.0-87.0); SITE, BLOOD GAS RT RADIAL; SOURCE, BLOOD GAS ARTERIAL; TEMPERATURE, FAHRENHEIT, BG 98.6 FAHREN (96.0-98.6); VENT MODE, BG SPONTANEOUS (ROOM AIR)
[2017-04-17 14:41] LABS: CPAP, BG 0 cm H2O; PEEP,BG 0 cm H2O; PRESSURE SUPPORT, BG 10 cm H2O; SPONTANEOUS VT, BG 410 ml
[2017-04-17] MEDS: AmLODIPine BESYLATE 10 MG TABLET PO SCH (16:36)
[2017-04-17] MEDS: LORazepam 2 MG/ML VIAL IVP PRN (19:55)
[2017-04-17] MEDS: AMINO ACIDS/PROTEIN HYDROLYS 30 ML TUBE PO SCH (20:38)
[2017-04-18] VITALS (11 sets, daily range): BP systolic 133–178; BP diastolic 64–103
[2017-04-18] MEDS: MORPHINE SULFATE 2 MG/ML SYRINGE IVP PRN ×5 (00:30→10:52)
[2017-04-18] MEDS: LORazepam 2 MG/ML VIAL IVP PRN ×3 (01:48→10:02)
[2017-04-18 05:35] LABS: ANION GAP 10 mmol/L (8-16); CALCIUM, TOTAL 8.9 mg/dL (8.8-10.5); CARBON DIOXIDE 25 mmol/L (22-29); CHLORIDE 108 mmol/L (98-107); CREATININE 0.52 mg/dL (0.60-1.30); GLOMERULAR FILTR. RATE CALC > 60 mL/min (>60); GLUCOSE,RANDOM 98 mg/dL (70-110); POTASSIUM 3.3 mmol/L (3.5-5.1); SODIUM SERUM 143 mmol/L (136-145); UREA NITROGEN, BLOOD 6 mg/dL (7-18)
[2017-04-18 05:39] LABS: BASOPHILS % (AUTO) 1.1 % (0.0-2.0); EOSINOPHILS % (AUTO) 2.3 % (1.0-6.0); HEMOGLOBIN 10.9 g/dL (13.5-17.5); LYMPHOCYTES % (AUTO) 21.3 % (22.0-44.0); MEAN CORPUSCULAR HEMOGLOBIN 30.3 pg (26.0-34.0); MEAN CORPUSCULAR HGB CONC 34.1 G/dL (31.0-37.0); MEAN CORPUSCULAR VOLUME 89 fL (80-100); MONOCYTES # (AUTO) 0.4 K/uL (0.1-1.0); MONOCYTES % (AUTO) 9.3 % (2.0-9.0); PLATELET COUNT (AUTO) 105 K/uL (150-450); RED CELL DISTRIBUTION WIDTH 14.6 % (11.5-14.5)
[2017-04-18] MEDS: LEVOTHYROXINE SODIUM 25 MCG TABLET PO SCH (05:45)
[2017-04-18] MEDS: HEPARIN SODIUM,PORCINE 5,000 UNITS/ML VIAL IVP PRN ×2 (06:55→23:11)
[2017-04-18] MEDS: AmLODIPine BESYLATE 10 MG TABLET PO SCH (07:49)
[2017-04-18] MEDS: ASPIRIN 81 MG EC TABLET PO SCH (07:49)
[2017-04-18] MEDS: LACTOBACILLUS ACIDOPHILUS/BULGARICUS GRANULES PACKET PO SCH (07:49)
[2017-04-18] MEDS: MULTIVITAMINS WITH MINERALS, THERAPEUTIC 15 ML UDCUP PO SCH (07:49)
[2017-04-18] MEDS: AMINO ACIDS/PROTEIN HYDROLYS 30 ML TUBE PO SCH ×2 (07:50→21:00)
[2017-04-18] MEDS: SENNA 187 MG TABLET PO SCH (07:50)
[2017-04-18] MEDS: VANCOMYCIN HCL 1 GM/D5% WATER 200 ML IV SCH ×4 (08:00→15:33)
[2017-04-18] MEDS: SODIUM CHLORIDE 0.9% 1,000 ML IV SCH ×2 (08:01→21:43)
[2017-04-18] MEDS: MetroNIDAZOLE 500 MG TABLET PO SCH ×2 (08:12→15:32)
[2017-04-18] MEDS: PANTOPRAZOLE SODIUM 40 MG/VIAL IVP SCH (08:12)
[2017-04-18] MEDS ORDERED: POTASSIUM CHLORIDE 10% 40 MEQ/30 ML LIQUID UDCUP PO PRN (08:30)
[2017-04-18] MEDS ORDERED: POTASSIUM CHLORIDE 20 MEQ ER TABLET PO PRN (08:30)
[2017-04-18] MEDS: POTASSIUM CHL 10 MEQ/WATER 50 ML IV PRN ×6 (08:50→15:33)
[2017-04-18] MEDS: HALOPERIDOL LACTATE 5 MG/ML VIAL IVP PRN (12:04)
[2017-04-18] MEDS: HEPARIN SODIUM 25000 UNITS/D5W 250 ML IV PRN ×2 (13:52→23:10)
[2017-04-18] MEDS ORDERED: SODIUM CHLORIDE 0.9% 500 ML IV ONE (13:59)
[2017-04-19 00:31] VITALS: BP 150/87
[2017-04-19] MEDS: VANCOMYCIN HCL 1 GM/D5% WATER 200 ML IV SCH ×2 (01:05→08:11)
[2017-04-19 06:26] LABS: BASOPHILS % (AUTO) 1.1 % (0.0-2.0); EOSINOPHILS % (AUTO) 1.9 % (1.0-6.0); HEMATOCRIT 35.4 % (41-53); HEMOGLOBIN 12.4 g/dL (13.5-17.5); LYMPHOCYTES % (AUTO) 20.3 % (22.0-44.0); MEAN CORPUSCULAR HEMOGLOBIN 30.7 pg (26.0-34.0); MEAN CORPUSCULAR VOLUME 88 fL (80-100); MONOCYTES # (AUTO) 0.4 K/uL (0.1-1.0); MONOCYTES % (AUTO) 8.7 % (2.0-9.0); NEUTROPHILS # (AUTO) 3.4 K/uL (1.8-7.7); PLATELET COUNT (AUTO) 114 K/uL (150-450); RED BLOOD CELL COUNT(AUTO) 4.03 MIL/uL (4.50-5.90); RED CELL DISTRIBUTION WIDTH 14.7 % (11.5-14.5)
[2017-04-19] MEDS: LEVOTHYROXINE SODIUM 25 MCG TABLET PO SCH (06:30)
[2017-04-19 06:40] LABS: ALANINE AMINOTRANSFERASE 59 U/L (12-78); ALBUMIN 2.6 g/dL (3.4-5.0); ALKALINE PHOSPHATASE 63 U/L (46-116); ANION GAP 10 mmol/L (8-16); ASPARTATE AMINOTRANSFERASE 38 U/L (15-37); BILIRUBIN,TOTAL 0.5 mg/dL (0.1-1.0); CALCIUM, TOTAL 8.9 mg/dL (8.8-10.5); CARBON DIOXIDE 24 mmol/L (22-29); CHLORIDE 107 mmol/L (98-107); CREATININE 0.67 mg/dL (0.60-1.30); GLOMERULAR FILTR. RATE CALC > 60 mL/min (>60); GLUCOSE,RANDOM 94 mg/dL (70-110); POTASSIUM 3.5 mmol/L (3.5-5.1); SODIUM SERUM 141 mmol/L (136-145); TOTAL PROTEIN, SERUM 6.9 g/dL (6.4-8.2); UREA NITROGEN, BLOOD 10 mg/dL (7-18)
[2017-04-19] MEDS: HEPARIN SODIUM,PORCINE 5,000 UNITS/ML VIAL IVP PRN (06:59)
[2017-04-19] MEDS: HEPARIN SODIUM 25000 UNITS/D5W 250 ML IV PRN ×2 (06:59→21:44)
[2017-04-19] MEDS: SODIUM CHLORIDE 0.9% 1,000 ML IV SCH (07:00)
[2017-04-19] MEDS ORDERED: AMINO ACIDS/PROTEIN HYDROLYS 30 ML TUBE PO SCH ×5 (08:00→14:00)
[2017-04-19] MEDS: PANTOPRAZOLE SODIUM 40 MG/VIAL IVP SCH (08:12)
[2017-04-19] MEDS: AmLODIPine BESYLATE 10 MG TABLET PO SCH (08:13)
[2017-04-19] MEDS: LACTOBACILLUS ACIDOPHILUS/BULGARICUS GRANULES PACKET PO SCH (08:14)
[2017-04-19] MEDS: ASPIRIN 81 MG EC TABLET PO SCH (08:14)
[2017-04-19] MEDS: MetroNIDAZOLE 500 MG TABLET PO SCH ×3 (08:14→17:01)
[2017-04-19] MEDS: MULTIVITAMINS WITH MINERALS, THERAPEUTIC 15 ML UDCUP PO SCH (08:15)
[2017-04-19] MEDS: SENNA 187 MG TABLET PO SCH (08:19)
[2017-04-19 11:34] VITALS: BP 153/87
[2017-04-19] MEDS: HALOPERIDOL LACTATE 5 MG/ML VIAL IVP PRN ×2 (13:23→22:24)
[2017-04-19 15:01] VITALS: BP 146/89
[2017-04-19] MEDS: LORazepam 2 MG/ML VIAL IVP PRN (18:51)
[2017-04-19 20:09] VITALS: BP 137/69
[2017-04-20] MEDS: MetroNIDAZOLE 500 MG TABLET PO SCH ×3 (00:12→15:29)
[2017-04-20 00:23] VITALS: BP 146/78
[2017-04-20] MEDS: LORazepam 2 MG/ML VIAL IVP PRN ×3 (01:23→22:03)
[2017-04-20 06:09] VITALS: BP 137/85
[2017-04-20] MEDS: LEVOTHYROXINE SODIUM 25 MCG TABLET PO SCH (06:17)
[2017-04-20 06:39] LABS: ANION GAP 8 mmol/L (8-16); CALCIUM, TOTAL 8.8 mg/dL (8.8-10.5); CARBON DIOXIDE 26 mmol/L (22-29); CHLORIDE 107 mmol/L (98-107); CREATININE 0.68 mg/dL (0.60-1.30); GLOMERULAR FILTR. RATE CALC > 60 mL/min (>60); GLUCOSE,RANDOM 111 mg/dL (70-110); POTASSIUM 3.3 mmol/L (3.5-5.1); SODIUM SERUM 141 mmol/L (136-145); UREA NITROGEN, BLOOD 14 mg/dL (7-18)
[2017-04-20 07:15] VITALS: BP 135/78
[2017-04-20] MEDS: HEPARIN SODIUM,PORCINE 5,000 UNITS/ML VIAL IVP PRN (07:57)
[2017-04-20] MEDS: HEPARIN SODIUM 25000 UNITS/D5W 250 ML IV PRN ×3 (07:58→16:21)
[2017-04-20] MEDS: ASPIRIN 81 MG EC TABLET PO SCH (08:02)
[2017-04-20] MEDS: LACTOBACILLUS ACIDOPHILUS/BULGARICUS GRANULES PACKET PO SCH (08:02)
[2017-04-20] MEDS: PANTOPRAZOLE SODIUM 40 MG/VIAL IVP SCH (08:02)
[2017-04-20] MEDS: AmLODIPine BESYLATE 10 MG TABLET PO SCH (08:02)
[2017-04-20] MEDS: MULTIVITAMINS WITH MINERALS, THERAPEUTIC 15 ML UDCUP PO SCH (08:02)
[2017-04-20] MEDS: SENNA 187 MG TABLET PO SCH (08:02)
[2017-04-20] MEDS: MORPHINE SULFATE 2 MG/ML SYRINGE IVP PRN ×2 (08:43→16:25)
[2017-04-20 11:09] VITALS: BP 132/77
[2017-04-20 16:21] VITALS: BP 136/75
[2017-04-20 19:00] LABS: ANION GAP 10 mmol/L (8-16); CALCIUM, TOTAL 8.9 mg/dL (8.8-10.5); CARBON DIOXIDE 23 mmol/L (22-29); CHLORIDE 106 mmol/L (98-107); GLOMERULAR FILTR. RATE CALC > 60 mL/min (>60); GLUCOSE,RANDOM 145 mg/dL (70-110); POTASSIUM 3.7 mmol/L (3.5-5.1); SODIUM SERUM 139 mmol/L (136-145); UREA NITROGEN, BLOOD 16 mg/dL (7-18)
[2017-04-20 20:01] VITALS: BP 130/74
[2017-04-20] MEDS ORDERED: MAGNESIUM SULFATE 2 GM in DEXTROSE 5%-WATER 50 ML IV ONE (20:30)
[2017-04-20] MEDS ORDERED: LISINOPRIL 5 MG TABLET PO ONE (21:30)
[2017-04-20] MEDS ORDERED: SODIUM CHLORIDE 0.9% 100 ML ONE (21:47)
[2017-04-21 00:21] VITALS: BP 136/75
[2017-04-21] MEDS: MetroNIDAZOLE 500 MG TABLET PO SCH ×2 (00:36→08:44)
[2017-04-21] MEDS: ENOXAPARIN SODIUM 100 MG/ML PF SYRINGE SQ SCH ×2 (00:37→08:46)
[2017-04-21 05:39] VITALS: BP 146/84
[2017-04-21] MEDS: MORPHINE SULFATE 2 MG/ML SYRINGE IVP PRN (06:19)
[2017-04-21] MEDS: LEVOTHYROXINE SODIUM 25 MCG TABLET PO SCH (06:19)
[2017-04-21 07:11] VITALS: BP_SYST 126; BP_SYST 128; BP_DIAS 64; BP_DIAS 67
[2017-04-21 07:18] LABS: ANION GAP 8 mmol/L (8-16); CALCIUM, TOTAL 8.6 mg/dL (8.8-10.5); CARBON DIOXIDE 24 mmol/L (22-29); CHLORIDE 107 mmol/L (98-107); GLOMERULAR FILTR. RATE CALC > 60 mL/min (>60); GLUCOSE,RANDOM 113 mg/dL (70-110); POTASSIUM 3.6 mmol/L (3.5-5.1); SODIUM SERUM 139 mmol/L (136-145); UREA NITROGEN, BLOOD 14 mg/dL (7-18)
[2017-04-21] MEDS ORDERED: SODIUM CHLORIDE 0.9% 250 ML IV ONE (08:10)
[2017-04-21] MEDS: LACTOBACILLUS ACIDOPHILUS/BULGARICUS GRANULES PACKET PO SCH (08:44)
[2017-04-21] MEDS: ASPIRIN 81 MG EC TABLET PO SCH (08:45)
[2017-04-21] MEDS: AmLODIPine BESYLATE 10 MG TABLET PO SCH (08:45)
[2017-04-21] MEDS: MULTIVITAMINS WITH MINERALS, THERAPEUTIC 15 ML UDCUP PO SCH (08:46)
[2017-04-21] MEDS: PANTOPRAZOLE SODIUM 40 MG/VIAL IVP SCH (08:46)
[2017-04-21] MEDS: POTASSIUM CHL 10 MEQ/WATER 50 ML IV PRN ×2 (08:47→10:58)
[2017-04-21] MEDS: SENNA 187 MG TABLET PO SCH (09:00)
[2017-04-21] MEDS ORDERED: CARVEDILOL 3.125 MG TABLET PO SCH (09:00)
[2017-04-21 11:35] VITALS: BP 132/72
== END 2017-04-21 13:30 | disposition left against medical advice (07) | DRG 870 ==
LOC: EMS 17:34 → ICU 21:12 → 5N 04-18 18:45
PROVIDERS: ADMIT Internal Medicine; ATTEND Internal Medicine
PROC: 5A1955Z Respiratory Ventilation, Greater than 96 Consecutive Hours (ICD-10-PCS; principal; 2017-04-10)
PROC: 0BH17EZ Insertion of Endotracheal Airway into Trachea, Via Natural or Artificial Opening (ICD-10-PCS; 2017-04-10)
PROC: 3E0234Z Introduction of Serum, Toxoid and Vaccine into Muscle, Percutaneous Approach (ICD-10-PCS; 2017-04-11)
DX: A41.9 Sepsis, unspecified organism (principal); J96.01 Acute respiratory failure with hypoxia; I46.9 Cardiac arrest, cause unspecified; G92 Toxic encephalopathy; A04.72 Enterocolitis due to Clostridium difficile, not specified as recurrent; I82.90 Acute embolism and thrombosis of unspecified vein; J44.9 Chronic obstructive pulmonary disease, unspecified; G93.9 Disorder of brain, unspecified; I48.91 Unspecified atrial fibrillation; I47.2 Ventricular tachycardia; I38 Endocarditis, valve unspecified; M62.82 Rhabdomyolysis; I50.32 Chronic diastolic (congestive) heart failure; J98.11 Atelectasis; T40.601A Poisoning by unspecified narcotics, accidental (unintentional), initial encounter; I11.0 Hypertensive heart disease with heart failure; I11.9 Hypertensive heart disease without heart failure; I25.10 Atherosclerotic heart disease of native coronary artery without angina pectoris; E03.9 Hypothyroidism, unspecified; G89.4 Chronic pain syndrome; B19.20 Unspecified viral hepatitis C without hepatic coma; E78.00 Pure hypercholesterolemia, unspecified; E78.5 Hyperlipidemia, unspecified; F41.9 Anxiety disorder, unspecified; I73.9 Peripheral vascular disease, unspecified; R16.2 Hepatomegaly with splenomegaly, not elsewhere classified; R74.0 Nonspecific elevation of levels of transaminase and lactic acid dehydrogenase [LDH]; K86.9 Disease of pancreas, unspecified; Z53.21 Procedure and treatment not carried out due to patient leaving prior to being seen by health care provider; Z79.01 Long term (current) use of anticoagulants; Z87.820 Personal history of traumatic brain injury; Z88.0 Allergy status to penicillin; Z91.19 Patient's noncompliance with other medical treatment and regimen; Z95.1 Presence of aortocoronary bypass graft; Z88.8 Allergy status to other drugs, medicaments and biological substances; Z23 Encounter for immunization
CPT/HCPCS: 51702; 70450; 71275; 76700; 80074; 82271; 82607; 82746; 82805; 83605; 83735; 84100; 84132; 84145; 84439; 84443; 85379; 86308; 87040; 87070; 87081; 87205; 87324; 87449; 87798; 87804; 87899; 92610; 93005; 93306; 94002; 94003; 94640; 96365; 96366; 96374; 96375; 97116; 97163; 97530; 99291; C9113; J0330; J0360; J0461; J1630; J1644; J1650; J2060; J2250; J2270; J2370; J2543; J2704; J3370; J3475; J3480; J3490; J7030; J7040; J7050; J7060

== ENCOUNTER 2018-02-02 12:40 | Inpatient (IN) | payer MEDICARE, OTHER ==
[~2018-02-02] VITALS: Ht 177.8 cm; Wt 107.2 kg
[~2018-02-02 12:40] MED LIST changes: +ALPR0.5T8 PO; +ASPI81TA42 PO; +ATOR40TA28 PO; -ATROPINE SULFATE 0.1 MG/ML 10 ML SYRINGE IVP ONE; +ENOX40DI9 SQ; -ETOMIDATE 2 MG/ML 10 ML VIAL IVP ONE; +FURO20 PO; +IPRNEB IH; +KDUR10 PO; +LEVO25TA9 PO; +LISI-662 PO; +METO25 PO; +NICO1PAT49 TD; +OXYC10 PO; +SENN-176 PO; -SUCCINYLCHOLINE CHLORIDE 20 MG/ML 10 ML VIAL IVP ONE; +[UNRECOGNIZED DRUG - CODE] TP
[2018-02-02] MEDS ORDERED: METO25 PO (13:19)
[2018-02-02] MEDS ORDERED: ALBU8HFA PO (13:19)
[2018-02-02 13:50] LABS: BASOPHILS % (AUTO) 1.3 % (0.0-2.0); EOSINOPHILS % (AUTO) 1.3 % (1.0-6.0); HEMATOCRIT 50.7 % (41-53); LYMPHOCYTES # (AUTO) 1.1 K/uL (1.0-4.8); LYMPHOCYTES % (AUTO) 13.7 % (22.0-44.0); MEAN CORPUSCULAR HEMOGLOBIN 29.6 pg (26.0-34.0); MEAN CORPUSCULAR HGB CONC 33.5 G/dL (31.0-37.0); MEAN CORPUSCULAR VOLUME 88 fL (80-100); MONOCYTES # (AUTO) 0.5 K/uL (0.1-1.0); NEUTROPHILS % (AUTO) 77.7 % (40.0-70.0); PLATELET COUNT (AUTO) 129 K/uL (150-450); RED BLOOD CELL COUNT(AUTO) 5.75 MIL/uL (4.50-5.90); RED CELL DISTRIBUTION WIDTH 15.6 % (11.5-14.5)
[2018-02-02 14:01] LABS: ANION GAP 9 mmol/L (8-16); CALCIUM, TOTAL 8.8 mg/dL (8.8-10.5); CARBON DIOXIDE 26 mmol/L (22-29); CHLORIDE 103 mmol/L (98-107); CREATININE 1.02 mg/dL (0.60-1.30); GLOMERULAR FILTR. RATE CALC > 60 mL/min (>60); GLUCOSE,RANDOM 112 mg/dL (70-110); POTASSIUM 4.4 mmol/L (3.5-5.1); SODIUM SERUM 138 mmol/L (136-145); UREA NITROGEN, BLOOD 17 mg/dL (7-18)
[2018-02-02 14:06] LABS: ALANINE AMINOTRANSFERASE 475 U/L (12-78); ALBUMIN 3.1 g/dL (3.4-5.0); ALKALINE PHOSPHATASE 156 U/L (46-116); ASPARTATE AMINOTRANSFERASE 416 U/L (15-37); TOTAL PROTEIN, SERUM 7.9 g/dL (6.4-8.2)
[2018-02-02] MEDS ORDERED: ONDANSETRON HCL 4 MG/2 ML VIAL IVP ONE (15:30)
[2018-02-02] MEDS ORDERED: MORPHINE SULFATE 4 MG/ML SYRINGE IVP ONE (15:30)
[2018-02-02] MEDS ORDERED: ACETAMINOPHEN 325 MG TABLET PO PRN (18:15)
[2018-02-02] MEDS ORDERED: HYDROCODONE/ACETAMINOPHEN 5-325 MG TABLET PO PRN (18:15)
[2018-02-02] MEDS ORDERED: OxyCODONE HCL 10 MG IR TABLET PO PRN (18:15)
[2018-02-02] MEDS ORDERED: ONDANSETRON HCL 4 MG/2 ML VIAL IVP PRN (18:15)
[2018-02-02] MEDS ORDERED: MAGNESIUM HYDROXIDE SUSPENSION 30 ML UDCUP PO PRN (18:15)
[2018-02-02] MEDS ORDERED: ZOLPIDEM TARTRATE 10 MG TABLET PO PRN (18:15)
[2018-02-02] MEDS ORDERED: ALBUTEROL SULFATE HFA 90 MCG/PUFF 8 GM INHALER IH PRN (18:30)
[2018-02-02] MEDS: MORPHINE SULFATE 4 MG/ML SYRINGE IVP PRN ×2 (19:04→21:34)
[2018-02-02] MEDS: ALPRAZolam 1 MG TABLET PO SCH (19:15)
[2018-02-02 20:55] VITALS: BP 148/72
[2018-02-02] MEDS: DOCUSATE SODIUM 100 MG CAPSULE PO SCH (21:00)
[2018-02-02] MEDS ORDERED: ATORVASTATIN CALCIUM 40 MG TABLET PO SCH (21:00)
[2018-02-02] MEDS: NITROGLYCERIN 2% (1 GM=INCH) PACKET TP SCH (23:46)
[2018-02-02 23:51] VITALS: BP 125/80
[2018-02-03] MEDS: ALPRAZolam 1 MG TABLET PO SCH ×4 (00:40→17:18)
[2018-02-03] MEDS: MORPHINE SULFATE 4 MG/ML SYRINGE IVP PRN ×5 (00:41→17:18)
[2018-02-03 04:42] VITALS: BP 114/75
[2018-02-03] MEDS: NITROGLYCERIN 2% (1 GM=INCH) PACKET TP SCH ×4 (05:42→23:33)
[2018-02-03 06:49] LABS: CHOL/HDL RATIO 4.5 (4.2-7.3)
[2018-02-03 07:39] VITALS: BP 121/62
[2018-02-03] MEDS: ALBUTEROL SULFATE 2.5 MG/0.5 ML NEB SOLUTION NEB SCH ×3 (08:00→20:22)
[2018-02-03] MEDS ORDERED: METOPROLOL TARTRATE 25 MG TABLET PO SCH (09:00)
[2018-02-03] MEDS: CefTRIAXone SODIUM 2 GM in DEXTROSE 5%-WATER 50 ML IV SCH (09:21)
[2018-02-03] MEDS: PANTOPRAZOLE SODIUM 40 MG/VIAL IVP SCH (09:21)
[2018-02-03] MEDS: ASPIRIN 81 MG CHEWABLE TABLET PO SCH (09:21)
[2018-02-03] MEDS: LISINOPRIL 20 MG TABLET PO SCH (09:22)
[2018-02-03] MEDS: DOCUSATE SODIUM 100 MG CAPSULE PO SCH ×2 (09:22→21:00)
[2018-02-03] MEDS ORDERED: SODIUM CHLORIDE 0.9% 100 ML ONE (09:47)
[2018-02-03] MEDS: AZITHROMYCIN 500 MG/NS 250 ML IV SCH (10:21)
[2018-02-03 11:32] VITALS: BP 99/63
[2018-02-03 15:53] VITALS: BP 110/64
[2018-02-03 19:25] VITALS: BP 101/59
[2018-02-03] MEDS ORDERED: 0.9% SODIUM CHLORIDE 5 ML NEB SOLUTION NEB ONE (20:09)
[2018-02-03] MEDS: METOPROLOL TARTRATE 25 MG TABLET PO SCH (21:00)
[2018-02-04] VITALS (9 sets, daily range): BP systolic 96–136; BP diastolic 46–88
[2018-02-04] MEDS: MORPHINE SULFATE 4 MG/ML SYRINGE IVP PRN ×5 (00:11→18:36)
[2018-02-04] MEDS: ALPRAZolam 1 MG TABLET PO SCH ×5 (00:11→23:39)
[2018-02-04] MEDS: NITROGLYCERIN 2% (1 GM=INCH) PACKET TP SCH ×4 (05:21→23:39)
[2018-02-04 06:13] LABS: BASOPHILS % (AUTO) 3.1 % (0.0-2.0); EOSINOPHILS % (AUTO) 2.6 % (1.0-6.0); HEMATOCRIT 45.4 % (41-53); HEMOGLOBIN 15.4 g/dL (13.5-17.5); LYMPHOCYTES # (AUTO) 0.8 K/uL (1.0-4.8); LYMPHOCYTES % (AUTO) 16.8 % (22.0-44.0); MEAN CORPUSCULAR HEMOGLOBIN 30.2 pg (26.0-34.0); MEAN CORPUSCULAR HGB CONC 33.9 G/dL (31.0-37.0); MEAN CORPUSCULAR VOLUME 89 fL (80-100); MONOCYTES # (AUTO) 0.5 K/uL (0.1-1.0); MONOCYTES % (AUTO) 10.4 % (2.0-9.0); NEUTROPHILS # (AUTO) 3.1 K/uL (1.8-7.7); NEUTROPHILS % (AUTO) 67.1 % (40.0-70.0); PLATELET COUNT (AUTO) 94 K/uL (150-450); RED BLOOD CELL COUNT(AUTO) 5.09 MIL/uL (4.50-5.90); RED CELL DISTRIBUTION WIDTH 15.5 % (11.5-14.5)
[2018-02-04 06:58] LABS: ALANINE AMINOTRANSFERASE 529 U/L (12-78); ALBUMIN 2.8 g/dL (3.4-5.0); ALKALINE PHOSPHATASE 137 U/L (46-116); ANION GAP 5 mmol/L (8-16); ASPARTATE AMINOTRANSFERASE 445 U/L (15-37); BILIRUBIN,TOTAL 0.5 mg/dL (0.1-1.0); CALCIUM, TOTAL 8.7 mg/dL (8.8-10.5); CARBON DIOXIDE 30 mmol/L (22-29); CHLORIDE 101 mmol/L (98-107); GLOMERULAR FILTR. RATE CALC > 60 mL/min (>60); GLUCOSE,RANDOM 102 mg/dL (70-110); POTASSIUM 4.3 mmol/L (3.5-5.1); SODIUM SERUM 136 mmol/L (136-145); TOTAL PROTEIN, SERUM 6.9 g/dL (6.4-8.2); UREA NITROGEN, BLOOD 19 mg/dL (7-18)
[2018-02-04] MEDS ORDERED: 0.9% SODIUM CHLORIDE 5 ML NEB SOLUTION NEB ONE ×3 (07:51→19:42)
[2018-02-04] MEDS: ALBUTEROL SULFATE 2.5 MG/0.5 ML NEB SOLUTION NEB SCH ×3 (08:41→21:22)
[2018-02-04] MEDS: LISINOPRIL 20 MG TABLET PO SCH (09:00)
[2018-02-04] MEDS: DOCUSATE SODIUM 100 MG CAPSULE PO SCH ×2 (09:00→20:53)
[2018-02-04] MEDS: PANTOPRAZOLE SODIUM 40 MG/VIAL IVP SCH (09:01)
[2018-02-04] MEDS: CefTRIAXone SODIUM 2 GM in DEXTROSE 5%-WATER 50 ML IV SCH (09:01)
[2018-02-04] MEDS: ASPIRIN 81 MG CHEWABLE TABLET PO SCH (09:01)
[2018-02-04] MEDS: METOPROLOL TARTRATE 25 MG TABLET PO SCH ×2 (09:01→20:53)
[2018-02-04] MEDS ORDERED: MAGNESIUM SULFATE 2 GM/WATER 50 ML IV ONE (09:15)
[2018-02-04] MEDS: AZITHROMYCIN 500 MG/NS 250 ML IV SCH (09:52)
[2018-02-04 11:46] LABS: INR 1.1 (0.9-1.1); PROTHROMBIN TIME 11.4 SEC (9.4-11.6)
[2018-02-04] MEDS: WARFARIN SODIUM 2 MG TABLET PO SCH (20:53)
[2018-02-05] VITALS (9 sets, daily range): BP systolic 98–141; BP diastolic 57–93
[2018-02-05] MEDS: MORPHINE SULFATE 4 MG/ML SYRINGE IVP PRN ×5 (00:20→20:57)
[2018-02-05] MEDS: ALPRAZolam 1 MG TABLET PO SCH ×3 (05:41→17:39)
[2018-02-05] MEDS: NITROGLYCERIN 2% (1 GM=INCH) PACKET TP SCH ×3 (05:42→17:06)
[2018-02-05 06:36] LABS: BASOPHILS % (AUTO) 1.6 % (0.0-2.0); EOSINOPHILS % (AUTO) 2.3 % (1.0-6.0); HEMOGLOBIN 14.7 g/dL (13.5-17.5); LYMPHOCYTES # (AUTO) 0.9 K/uL (1.0-4.8); LYMPHOCYTES % (AUTO) 19.3 % (22.0-44.0); MEAN CORPUSCULAR HEMOGLOBIN 30.4 pg (26.0-34.0); MEAN CORPUSCULAR HGB CONC 34.2 G/dL (31.0-37.0); MEAN CORPUSCULAR VOLUME 89 fL (80-100); MONOCYTES # (AUTO) 0.5 K/uL (0.1-1.0); MONOCYTES % (AUTO) 11.6 % (2.0-9.0); NEUTROPHILS # (AUTO) 3.1 K/uL (1.8-7.7); NEUTROPHILS % (AUTO) 65.2 % (40.0-70.0); PLATELET COUNT (AUTO) 93 K/uL (150-450); RED BLOOD CELL COUNT(AUTO) 4.82 MIL/uL (4.50-5.90); RED CELL DISTRIBUTION WIDTH 15.7 % (11.5-14.5)
[2018-02-05 07:25] LABS: ALANINE AMINOTRANSFERASE 542 U/L (12-78); ALBUMIN 2.8 g/dL (3.4-5.0); ALKALINE PHOSPHATASE 145 U/L (46-116); ANION GAP 6 mmol/L (8-16); ASPARTATE AMINOTRANSFERASE 398 U/L (15-37); BILIRUBIN,TOTAL 0.4 mg/dL (0.1-1.0); CALCIUM, TOTAL 8.4 mg/dL (8.8-10.5); CARBON DIOXIDE 28 mmol/L (22-29); CHLORIDE 102 mmol/L (98-107); CREATININE 0.92 mg/dL (0.60-1.30); GLOMERULAR FILTR. RATE CALC > 60 mL/min (>60); GLUCOSE,RANDOM 114 mg/dL (70-110); POTASSIUM 4.5 mmol/L (3.5-5.1); SODIUM SERUM 136 mmol/L (136-145); TOTAL PROTEIN, SERUM 6.9 g/dL (6.4-8.2); UREA NITROGEN, BLOOD 20 mg/dL (7-18)
[2018-02-05] MEDS ORDERED: 0.9% SODIUM CHLORIDE 5 ML NEB SOLUTION NEB ONE ×2 (08:01→19:16)
[2018-02-05] MEDS ORDERED: MAGNESIUM SULFATE 3 GM in DEXTROSE 5%-WATER 100 ML IV ONE (08:30)
[2018-02-05] MEDS: ALBUTEROL SULFATE 2.5 MG/0.5 ML NEB SOLUTION NEB SCH ×3 (08:35→22:05)
[2018-02-05] MEDS: LISINOPRIL 20 MG TABLET PO SCH ×2 (08:35→16:03)
[2018-02-05] MEDS: DOCUSATE SODIUM 100 MG CAPSULE PO SCH ×2 (08:41→20:56)
[2018-02-05] MEDS: CefTRIAXone SODIUM 2 GM in DEXTROSE 5%-WATER 50 ML IV SCH (08:41)
[2018-02-05] MEDS: ASPIRIN 81 MG CHEWABLE TABLET PO SCH (08:41)
[2018-02-05] MEDS: PANTOPRAZOLE SODIUM 40 MG/VIAL IVP SCH (08:41)
[2018-02-05 09:09] LABS: INR 1.1 (0.9-1.1); PROTHROMBIN TIME 11.5 SEC (9.4-11.6)
[2018-02-05] MEDS: AZITHROMYCIN 500 MG/NS 250 ML IV SCH (09:23)
[2018-02-05] MEDS: METOPROLOL TARTRATE 25 MG TABLET PO SCH ×2 (12:20→21:00)
[2018-02-05] MEDS: WARFARIN SODIUM 2 MG TABLET PO SCH (20:55)
[2018-02-06] MEDS: ALPRAZolam 1 MG TABLET PO SCH ×4 (00:27→18:40)
[2018-02-06 02:45] VITALS: BP 141/75
[2018-02-06] MEDS: MORPHINE SULFATE 4 MG/ML SYRINGE IVP PRN ×4 (02:54→21:34)
[2018-02-06 03:31] VITALS: BP 120/63
[2018-02-06 05:55] LABS: BASOPHILS % (AUTO) 1.2 % (0.0-2.0); EOSINOPHILS % (AUTO) 2.5 % (1.0-6.0); HEMATOCRIT 44.7 % (41-53); HEMOGLOBIN 15.2 g/dL (13.5-17.5); LYMPHOCYTES # (AUTO) 1.1 K/uL (1.0-4.8); LYMPHOCYTES % (AUTO) 21.4 % (22.0-44.0); MEAN CORPUSCULAR HEMOGLOBIN 30.3 pg (26.0-34.0); MEAN CORPUSCULAR VOLUME 89 fL (80-100); MONOCYTES # (AUTO) 0.5 K/uL (0.1-1.0); MONOCYTES % (AUTO) 9.4 % (2.0-9.0); NEUTROPHILS # (AUTO) 3.4 K/uL (1.8-7.7); NEUTROPHILS % (AUTO) 65.5 % (40.0-70.0); PLATELET COUNT (AUTO) 100 K/uL (150-450); RED BLOOD CELL COUNT(AUTO) 5.02 MIL/uL (4.50-5.90); RED CELL DISTRIBUTION WIDTH 15.9 % (11.5-14.5)
[2018-02-06] MEDS: NITROGLYCERIN 2% (1 GM=INCH) PACKET TP SCH ×4 (06:00→16:42)
[2018-02-06 06:11] LABS: ALANINE AMINOTRANSFERASE 534 U/L (12-78); ALBUMIN 2.8 g/dL (3.4-5.0); ALKALINE PHOSPHATASE 128 U/L (46-116); ANION GAP 5 mmol/L (8-16); ASPARTATE AMINOTRANSFERASE 378 U/L (15-37); BILIRUBIN,TOTAL 0.5 mg/dL (0.1-1.0); CALCIUM, TOTAL 7.9 mg/dL (8.8-10.5); CARBON DIOXIDE 29 mmol/L (22-29); CHLORIDE 102 mmol/L (98-107); CREATININE 0.98 mg/dL (0.60-1.30); GLOMERULAR FILTR. RATE CALC > 60 mL/min (>60); GLUCOSE,RANDOM 128 mg/dL (70-110); POTASSIUM 4.3 mmol/L (3.5-5.1); SODIUM SERUM 136 mmol/L (136-145); UREA NITROGEN, BLOOD 18 mg/dL (7-18)
[2018-02-06] MEDS: METOPROLOL TARTRATE 25 MG TABLET PO SCH (08:40)
[2018-02-06] MEDS: ASPIRIN 81 MG CHEWABLE TABLET PO SCH (08:40)
[2018-02-06] MEDS: LISINOPRIL 20 MG TABLET PO SCH (08:40)
[2018-02-06] MEDS: PANTOPRAZOLE SODIUM 40 MG/VIAL IVP SCH (08:40)
[2018-02-06] MEDS: DOCUSATE SODIUM 100 MG CAPSULE PO SCH ×2 (08:41→21:00)
[2018-02-06] MEDS: IPRATROPIUM BROMIDE 0.5 MG/2.5 ML NEB SOLUTION NEB PRN (08:52)
[2018-02-06] MEDS ORDERED: SODIUM CHLORIDE 0.9% 250 ML IV ONE (08:52)
[2018-02-06] MEDS: CefTRIAXone SODIUM 2 GM in DEXTROSE 5%-WATER 50 ML IV SCH (08:52)
[2018-02-06] MEDS: ALBUTEROL SULFATE 2.5 MG/0.5 ML NEB SOLUTION NEB SCH ×3 (08:52→20:00)
[2018-02-06] MEDS: AZITHROMYCIN 500 MG/NS 250 ML IV SCH (09:27)
[2018-02-06] MEDS: CARVEDILOL 6.25 MG TABLET PO SCH ×2 (10:00→21:25)
[2018-02-06 15:35] VITALS: BP 111/69
[2018-02-06 19:57] VITALS: BP 116/59
[2018-02-06] MEDS: WARFARIN SODIUM 5 MG TABLET PO SCH (21:25)
[2018-02-07 00:11] VITALS: BP 100/60
[2018-02-07] MEDS: ALPRAZolam 1 MG TABLET PO SCH ×4 (01:24→17:58)
[2018-02-07] MEDS: MORPHINE SULFATE 4 MG/ML SYRINGE IVP PRN ×2 (04:10→14:27)
[2018-02-07 05:09] VITALS: BP 106/65
[2018-02-07] MEDS: NITROGLYCERIN 2% (1 GM=INCH) PACKET TP SCH ×4 (06:00→17:55)
[2018-02-07 07:43] LABS: BASOPHILS % (AUTO) 1.5 % (0.0-2.0); EOSINOPHILS % (AUTO) 2.9 % (1.0-6.0); HEMATOCRIT 47.7 % (41-53); HEMOGLOBIN 16.5 g/dL (13.5-17.5); LYMPHOCYTES # (AUTO) 1.3 K/uL (1.0-4.8); LYMPHOCYTES % (AUTO) 22.1 % (22.0-44.0); MEAN CORPUSCULAR HEMOGLOBIN 30.8 pg (26.0-34.0); MEAN CORPUSCULAR HGB CONC 34.5 G/dL (31.0-37.0); MEAN CORPUSCULAR VOLUME 89 fL (80-100); MONOCYTES # (AUTO) 0.6 K/uL (0.1-1.0); MONOCYTES % (AUTO) 10.7 % (2.0-9.0); NEUTROPHILS # (AUTO) 3.8 K/uL (1.8-7.7); NEUTROPHILS % (AUTO) 62.8 % (40.0-70.0); PLATELET COUNT (AUTO) 125 K/uL (150-450); RED BLOOD CELL COUNT(AUTO) 5.34 MIL/uL (4.50-5.90); RED CELL DISTRIBUTION WIDTH 15.8 % (11.5-14.5)
[2018-02-07 07:53] LABS: INR 1.2 (0.9-1.1); PROTHROMBIN TIME 12.9 SEC (9.4-11.6)
[2018-02-07 07:59] LABS: ALANINE AMINOTRANSFERASE 575 U/L (12-78); ALBUMIN 3.1 g/dL (3.4-5.0); ALKALINE PHOSPHATASE 143 U/L (46-116); ANION GAP 8 mmol/L (8-16); ASPARTATE AMINOTRANSFERASE 381 U/L (15-37); BILIRUBIN,TOTAL 0.5 mg/dL (0.1-1.0); CARBON DIOXIDE 25 mmol/L (22-29); CHLORIDE 100 mmol/L (98-107); CREATININE 0.79 mg/dL (0.60-1.30); GLOMERULAR FILTR. RATE CALC > 60 mL/min (>60); GLUCOSE,RANDOM 97 mg/dL (70-110); POTASSIUM 5.2 mmol/L (3.5-5.1); SODIUM SERUM 133 mmol/L (136-145); UREA NITROGEN, BLOOD 18 mg/dL (7-18)
[2018-02-07] MEDS: CefTRIAXone SODIUM 2 GM in DEXTROSE 5%-WATER 50 ML IV SCH (08:12)
[2018-02-07] MEDS: ASPIRIN 81 MG CHEWABLE TABLET PO SCH (08:13)
[2018-02-07] MEDS: DOCUSATE SODIUM 100 MG CAPSULE PO SCH ×2 (08:13→21:00)
[2018-02-07] MEDS: CARVEDILOL 6.25 MG TABLET PO SCH ×2 (08:13→21:00)
[2018-02-07] MEDS: PANTOPRAZOLE SODIUM 40 MG/VIAL IVP SCH (08:13)
[2018-02-07] MEDS: LISINOPRIL 20 MG TABLET PO SCH (08:14)
[2018-02-07] MEDS ORDERED: 0.9% SODIUM CHLORIDE 5 ML NEB SOLUTION NEB ONE ×2 (08:41→19:41)
[2018-02-07] MEDS: ALBUTEROL SULFATE 2.5 MG/0.5 ML NEB SOLUTION NEB SCH ×3 (08:46→20:00)
[2018-02-07] MEDS: AZITHROMYCIN 500 MG/NS 250 ML IV SCH (08:56)
[2018-02-07 11:37] VITALS: BP 137/91
[2018-02-07] MEDS: IPRATROPIUM BROMIDE 0.5 MG/2.5 ML NEB SOLUTION NEB PRN (13:40)
[2018-02-07 16:15] VITALS: BP 115/78
[2018-02-07 20:00] VITALS: BP 100/61
[2018-02-07] MEDS: WARFARIN SODIUM 5 MG TABLET PO SCH (21:00)
[2018-02-08] VITALS (7 sets, daily range): BP systolic 101–154; BP diastolic 59–95
[2018-02-08] MEDS: ALPRAZolam 1 MG TABLET PO SCH ×5 (05:20→23:22)
[2018-02-08] MEDS: MORPHINE SULFATE 4 MG/ML SYRINGE IVP PRN ×3 (05:20→19:44)
[2018-02-08] MEDS: NITROGLYCERIN 2% (1 GM=INCH) PACKET TP SCH ×5 (06:00→23:35)
[2018-02-08 06:35] LABS: BASOPHILS % (AUTO) 1.8 % (0.0-2.0); EOSINOPHILS % (AUTO) 2.6 % (1.0-6.0); HEMATOCRIT 47.6 % (41-53); HEMOGLOBIN 16.3 g/dL (13.5-17.5); LYMPHOCYTES # (AUTO) 1.3 K/uL (1.0-4.8); MEAN CORPUSCULAR HEMOGLOBIN 30.4 pg (26.0-34.0); MEAN CORPUSCULAR HGB CONC 34.2 G/dL (31.0-37.0); MEAN CORPUSCULAR VOLUME 89 fL (80-100); MONOCYTES # (AUTO) 0.5 K/uL (0.1-1.0); MONOCYTES % (AUTO) 10.3 % (2.0-9.0); NEUTROPHILS # (AUTO) 2.9 K/uL (1.8-7.7); NEUTROPHILS % (AUTO) 59.3 % (40.0-70.0); PLATELET COUNT (AUTO) 118 K/uL (150-450); RED BLOOD CELL COUNT(AUTO) 5.36 MIL/uL (4.50-5.90); RED CELL DISTRIBUTION WIDTH 15.7 % (11.5-14.5)
[2018-02-08 06:46] LABS: INR 1.6 (0.9-1.1); PROTHROMBIN TIME 16.5 SEC (9.4-11.6)
[2018-02-08 06:52] LABS: ALANINE AMINOTRANSFERASE 566 U/L (12-78); ALKALINE PHOSPHATASE 136 U/L (46-116); ANION GAP 6 mmol/L (8-16); ASPARTATE AMINOTRANSFERASE 374 U/L (15-37); BILIRUBIN,TOTAL 0.3 mg/dL (0.1-1.0); CALCIUM, TOTAL 8.6 mg/dL (8.8-10.5); CARBON DIOXIDE 28 mmol/L (22-29); CHLORIDE 101 mmol/L (98-107); CREATININE 0.91 mg/dL (0.60-1.30); GLOMERULAR FILTR. RATE CALC > 60 mL/min (>60); GLUCOSE,RANDOM 104 mg/dL (70-110); POTASSIUM 4.6 mmol/L (3.5-5.1); SODIUM SERUM 135 mmol/L (136-145); TOTAL PROTEIN, SERUM 7.6 g/dL (6.4-8.2); UREA NITROGEN, BLOOD 22 mg/dL (7-18)
[2018-02-08] MEDS: LISINOPRIL 20 MG TABLET PO SCH (09:00)
[2018-02-08] MEDS: CARVEDILOL 6.25 MG TABLET PO SCH ×2 (09:00→21:15)
[2018-02-08] MEDS: DOCUSATE SODIUM 100 MG CAPSULE PO SCH ×2 (09:00→21:15)
[2018-02-08] MEDS: ASPIRIN 81 MG CHEWABLE TABLET PO SCH (09:12)
[2018-02-08] MEDS: PANTOPRAZOLE SODIUM 40 MG/VIAL IVP SCH (09:13)
[2018-02-08] MEDS: CefTRIAXone SODIUM 2 GM in DEXTROSE 5%-WATER 50 ML IV SCH (09:14)
[2018-02-08] MEDS: IPRATROPIUM BROMIDE 0.5 MG/2.5 ML NEB SOLUTION NEB PRN ×2 (09:29→20:12)
[2018-02-08] MEDS: ALBUTEROL SULFATE 2.5 MG/0.5 ML NEB SOLUTION NEB SCH ×3 (09:29→20:12)
[2018-02-08] MEDS: AZITHROMYCIN 500 MG/NS 250 ML IV SCH (10:22)
[2018-02-08] MEDS: WARFARIN SODIUM 2 MG TABLET PO SCH (21:00)
[2018-02-09] VITALS (15 sets, daily range): BP systolic 90–135; BP diastolic 55–99
[2018-02-09] MEDS: ALPRAZolam 1 MG TABLET PO SCH ×3 (06:00→19:03)
[2018-02-09] MEDS: NITROGLYCERIN 2% (1 GM=INCH) PACKET TP SCH ×3 (06:00→16:33)
[2018-02-09] MEDS: MORPHINE SULFATE 4 MG/ML SYRINGE IVP PRN ×4 (06:35→22:38)
[2018-02-09 07:29] LABS: BASOPHILS % (AUTO) 0.4 % (0.0-2.0); EOSINOPHILS % (AUTO) 3.2 % (1.0-6.0); HEMATOCRIT 43.5 % (41-53); HEMOGLOBIN 15.1 g/dL (13.5-17.5); LYMPHOCYTES # (AUTO) 1.1 K/uL (1.0-4.8); LYMPHOCYTES % (AUTO) 25.4 % (22.0-44.0); MEAN CORPUSCULAR HEMOGLOBIN 30.4 pg (26.0-34.0); MEAN CORPUSCULAR HGB CONC 34.7 G/dL (31.0-37.0); MEAN CORPUSCULAR VOLUME 88 fL (80-100); MONOCYTES # (AUTO) 0.6 K/uL (0.1-1.0); NEUTROPHILS # (AUTO) 2.3 K/uL (1.8-7.7); PLATELET COUNT (AUTO) 104 K/uL (150-450); RED BLOOD CELL COUNT(AUTO) 4.97 MIL/uL (4.50-5.90); RED CELL DISTRIBUTION WIDTH 15.4 % (11.5-14.5)
[2018-02-09 07:38] LABS: INR 1.4 (0.9-1.1); PROTHROMBIN TIME 14.3 SEC (9.4-11.6)
[2018-02-09] MEDS: ASPIRIN 81 MG CHEWABLE TABLET PO SCH (08:23)
[2018-02-09 08:24] LABS: ALANINE AMINOTRANSFERASE 519 U/L (12-78); ALBUMIN 2.9 g/dL (3.4-5.0); ALKALINE PHOSPHATASE 125 U/L (46-116); ANION GAP 6 mmol/L (8-16); ASPARTATE AMINOTRANSFERASE 336 U/L (15-37); BILIRUBIN,TOTAL 0.3 mg/dL (0.1-1.0); CALCIUM, TOTAL 8.3 mg/dL (8.8-10.5); CARBON DIOXIDE 27 mmol/L (22-29); CHLORIDE 102 mmol/L (98-107); CREATININE 0.89 mg/dL (0.60-1.30); GLOMERULAR FILTR. RATE CALC > 60 mL/min (>60); GLUCOSE,RANDOM 93 mg/dL (70-110); POTASSIUM 4.5 mmol/L (3.5-5.1); SODIUM SERUM 135 mmol/L (136-145); TOTAL PROTEIN, SERUM 7.3 g/dL (6.4-8.2); UREA NITROGEN, BLOOD 19 mg/dL (7-18)
[2018-02-09] MEDS ORDERED: SODIUM CHLORIDE 0.9% 250 ML IV ONE (08:26)
[2018-02-09] MEDS: CefTRIAXone SODIUM 2 GM in DEXTROSE 5%-WATER 50 ML IV SCH (08:34)
[2018-02-09] MEDS: IPRATROPIUM BROMIDE 0.5 MG/2.5 ML NEB SOLUTION NEB PRN ×2 (09:04→14:34)
[2018-02-09] MEDS: ALBUTEROL SULFATE 2.5 MG/0.5 ML NEB SOLUTION NEB SCH ×3 (09:04→20:00)
[2018-02-09] MEDS: CARVEDILOL 12.5 MG TABLET PO SCH ×2 (09:32→20:08)
[2018-02-09] MEDS: LISINOPRIL 20 MG TABLET PO SCH (09:33)
[2018-02-09] MEDS: PANTOPRAZOLE SODIUM 40 MG/VIAL IVP SCH (09:34)
[2018-02-09] MEDS: DOCUSATE SODIUM 100 MG CAPSULE PO SCH ×2 (09:35→20:08)
[2018-02-09] MEDS: AZITHROMYCIN 500 MG/NS 250 ML IV SCH (09:36)
[2018-02-09] MEDS ORDERED: VANCOMYCIN HCL 1 GM/VIAL ONE (10:19)
[2018-02-09] MEDS ORDERED: LIDOCAINE/PF 1% 30 ML VIAL ONE ×2 (10:19→11:22)
[2018-02-09] MEDS ORDERED: SODIUM BICARBONATE 50 MEQ/50 ML VIAL ONE (10:19)
[2018-02-09] MEDS ORDERED: VANCOMYCIN HCL 0.5 GM in DEXTROSE 5%-WATER 100 ML IV ONE (11:00)
[2018-02-09] MEDS ORDERED: LIDOCAINE 1% 30 ML/SOD BICARB 8.4% 4 ML SQ ONE (11:00)
[2018-02-09] MEDS ORDERED: VANCOMYCIN HCL 1 GM/VIAL IRRIG ONE (11:00)
[2018-02-09] MEDS ORDERED: BUPIVACAINE LIPOSOME/PF 1.3%-13.3MG/ML SUSPENSION 10 ML VIAL INJ ONE (11:00)
[2018-02-09] MEDS ORDERED: IOHEXOL 300 MG/ML 50 ML VIAL ONE (11:17)
[2018-02-09] MEDS ORDERED: MIDAZOLAM HCL 2 MG/2 ML VIAL IVP ONE (12:00)
[2018-02-09] MEDS ORDERED: KETAMINE HCL 50 MG/ML 10 ML VIAL ONE (12:59)
[2018-02-09] MEDS ORDERED: VANCOMYCIN HCL 1.25 GM in DEXTROSE 5%-WATER 250 ML IV ONE (13:30)
[2018-02-09] MEDS ORDERED: 0.9% SODIUM CHLORIDE 5 ML NEB SOLUTION NEB ONE (19:46)
[2018-02-09] MEDS: WARFARIN SODIUM 2 MG TABLET PO SCH (20:08)
[2018-02-09] MEDS ORDERED: VANCOMYCIN HCL 1 GM/D5% WATER 200 ML IV ONE (23:00)
[2018-02-10] MEDS: ALPRAZolam 1 MG TABLET PO SCH ×3 (00:01→12:09)
[2018-02-10] MEDS: VANCOMYCIN HCL 1 GM/D5% WATER 200 ML IV SCH ×2 (00:02→14:37)
[2018-02-10 01:14] VITALS: BP 104/71
[2018-02-10] MEDS: MORPHINE SULFATE 4 MG/ML SYRINGE IVP PRN ×3 (04:04→16:46)
[2018-02-10 05:23] VITALS: BP 128/80
[2018-02-10] MEDS: NITROGLYCERIN 2% (1 GM=INCH) PACKET TP SCH ×4 (06:00→15:37)
[2018-02-10 07:00] LABS: BASOPHILS % (AUTO) 1.2 % (0.0-2.0); EOSINOPHILS % (AUTO) 2.6 % (1.0-6.0); HEMATOCRIT 43.3 % (41-53); HEMOGLOBIN 14.7 g/dL (13.5-17.5); LYMPHOCYTES # (AUTO) 1.1 K/uL (1.0-4.8); LYMPHOCYTES % (AUTO) 19.6 % (22.0-44.0); MEAN CORPUSCULAR HEMOGLOBIN 29.9 pg (26.0-34.0); MEAN CORPUSCULAR HGB CONC 34.1 G/dL (31.0-37.0); MEAN CORPUSCULAR VOLUME 88 fL (80-100); MONOCYTES # (AUTO) 0.8 K/uL (0.1-1.0); MONOCYTES % (AUTO) 14.6 % (2.0-9.0); NEUTROPHILS # (AUTO) 3.3 K/uL (1.8-7.7); PLATELET COUNT (AUTO) 101 K/uL (150-450); RED BLOOD CELL COUNT(AUTO) 4.92 MIL/uL (4.50-5.90); RED CELL DISTRIBUTION WIDTH 15.4 % (11.5-14.5)
[2018-02-10 07:08] LABS: INR 1.2 (0.9-1.1); PROTHROMBIN TIME 12.6 SEC (9.4-11.6)
[2018-02-10 07:31] LABS: ALANINE AMINOTRANSFERASE 528 U/L (12-78); ALBUMIN 2.8 g/dL (3.4-5.0); ALKALINE PHOSPHATASE 130 U/L (46-116); ANION GAP 8 mmol/L (8-16); ASPARTATE AMINOTRANSFERASE 327 U/L (15-37); BILIRUBIN,TOTAL 0.5 mg/dL (0.1-1.0); CALCIUM, TOTAL 8.7 mg/dL (8.8-10.5); CARBON DIOXIDE 26 mmol/L (22-29); CHLORIDE 100 mmol/L (98-107); CREATININE 0.73 mg/dL (0.60-1.30); GLOMERULAR FILTR. RATE CALC > 60 mL/min (>60); GLUCOSE,RANDOM 108 mg/dL (70-110); POTASSIUM 4.6 mmol/L (3.5-5.1); SODIUM SERUM 134 mmol/L (136-145); TOTAL PROTEIN, SERUM 7.2 g/dL (6.4-8.2); UREA NITROGEN, BLOOD 19 mg/dL (7-18)
[2018-02-10 07:34] VITALS: BP 106/70
[2018-02-10] MEDS ORDERED: 0.9% SODIUM CHLORIDE 5 ML NEB SOLUTION NEB ONE (08:28)
[2018-02-10] MEDS: LISINOPRIL 20 MG TABLET PO SCH (09:00)
[2018-02-10] MEDS: CARVEDILOL 12.5 MG TABLET PO SCH (09:00)
[2018-02-10] MEDS: ALBUTEROL SULFATE 2.5 MG/0.5 ML NEB SOLUTION NEB SCH ×2 (09:05→15:32)
[2018-02-10] MEDS: PANTOPRAZOLE SODIUM 40 MG/VIAL IVP SCH (09:20)
[2018-02-10] MEDS: DOCUSATE SODIUM 100 MG CAPSULE PO SCH (09:21)
[2018-02-10] MEDS: ASPIRIN 81 MG CHEWABLE TABLET PO SCH (09:21)
[2018-02-10] MEDS: CefTRIAXone SODIUM 2 GM in DEXTROSE 5%-WATER 50 ML IV SCH (09:21)
[2018-02-10] MEDS ORDERED: MAGNESIUM OXIDE 400 MG TABLET PO PRN (10:15)
[2018-02-10] MEDS ORDERED: MAGNESIUM SULFATE 2 GM/WATER 50 ML IV PRN (10:15)
[2018-02-10] MEDS ORDERED: MAGNESIUM SULFATE 4 GM/WATER 100 ML IV PRN (10:15)
[2018-02-10 11:29] VITALS: BP 114/80
[2018-02-10] MEDS ORDERED: LIDOCAINE/PF 2% 5 ML VIAL INJ ONE (12:05)
[2018-02-10] MEDS: AZITHROMYCIN 500 MG/NS 250 ML IV SCH (12:05)
[2018-02-10] MEDS ORDERED: PHENYLEPHRINE HCL 10 MG/ML VIAL IVP ONE (12:05)
[2018-02-10] MEDS ORDERED: 0.9% SODIUM CHLORIDE 10 ML VIAL IVP ONE (12:05)
[2018-02-10] MEDS ORDERED: EPHEDrine SULFATE 50 MG/ML VIAL IM ONE (12:05)
[2018-02-10] MEDS ORDERED: PROPOFOL 1% 20 ML VIAL IVP ONE (12:05)
[2018-02-10 15:44] VITALS: BP 108/85
[2018-02-10 16:45] VITALS: BP 139/96
[2018-02-10] MEDS ORDERED: [UNRECOGNIZED DRUG - CODE] IV (17:23)
[2018-02-10] MEDS ORDERED: CARV12 PO (17:23)
[2018-02-10] MEDS ORDERED: DSS100 PO (17:24)
[2018-02-10] MEDS ORDERED: CEFX1I IM (17:24)
[2018-02-10] MEDS ORDERED: WARF5 PO (17:25)
== END 2018-02-10 17:45 | DRG 226 ==
LOC: EMS 12:40 → 5N 18:30 → 5S 02-07 19:05
PROVIDERS: ADMIT Hospitalist; ATTEND Hospitalist
PROC: 0JH608Z Insertion of Defibrillator Generator into Chest Subcutaneous Tissue and Fascia, Open Approach (ICD-10-PCS; principal; 2018-02-09)
PROC: 02H63KZ Insertion of Defibrillator Lead into Right Atrium, Percutaneous Approach (ICD-10-PCS; 2018-02-09)
PROC: 4B02XTZ Measurement of Cardiac Defibrillator, External Approach (ICD-10-PCS; 2018-02-10)
DX: I48.0 Paroxysmal atrial fibrillation (principal); J18.9 Pneumonia, unspecified organism; I50.22 Chronic systolic (congestive) heart failure; J44.0 Chronic obstructive pulmonary disease with (acute) lower respiratory infection; R07.9 Chest pain, unspecified; I47.2 Ventricular tachycardia; I25.5 Ischemic cardiomyopathy; I10 Essential (primary) hypertension; E03.9 Hypothyroidism, unspecified; F41.9 Anxiety disorder, unspecified; E78.5 Hyperlipidemia, unspecified; B19.20 Unspecified viral hepatitis C without hepatic coma; I51.3 Intracardiac thrombosis, not elsewhere classified; I11.0 Hypertensive heart disease with heart failure; E78.00 Pure hypercholesterolemia, unspecified; I25.118 Atherosclerotic heart disease of native coronary artery with other forms of angina pectoris; K74.60 Unspecified cirrhosis of liver; F17.210 Nicotine dependence, cigarettes, uncomplicated; E87.5 Hyperkalemia; I73.9 Peripheral vascular disease, unspecified; W19.XXXA Unspecified fall, initial encounter; Y93.01 Activity, walking, marching and hiking; R32 Unspecified urinary incontinence; Z88.0 Allergy status to penicillin; Z88.8 Allergy status to other drugs, medicaments and biological substances; Z59.0 Homelessness; I25.2 Old myocardial infarction; Z95.1 Presence of aortocoronary bypass graft; Z86.73 Personal history of transient ischemic attack (TIA), and cerebral infarction without residual deficits; Y92.89 Other specified places as the place of occurrence of the external cause; Y99.8 Other external cause status; Z79.01 Long term (current) use of anticoagulants; Z95.810 Presence of automatic (implantable) cardiac defibrillator
CPT/HCPCS: 33249; 76000; 80074; 83735; 93005; 93306; 94640; 96374; 96375; 97162; 97530; C9113; G0378; J0456; J0696; J2250; J2270; J2370; J2405; J2704; J3370; J3475; J3490; J7050; J7060; Q9967

== ENCOUNTER → 2018-02-18 | Outpatient (CLI) | payer MEDICARE ==
[~2018-02-18] VITALS: Ht 177.8 cm; Wt 108.0 kg
[~2018-02-18] MED LIST changes: +ALBU8HFA PO; +CARV12 PO; +CEFX1I IM; +DSS100 PO; -ENOX40DI9 SQ; -FURO20 PO; -KDUR10 PO; -LEVO25TA9 PO; -METO25 PO; -NICO1PAT49 TD; +OXYC10IR PO; -SENN-176 PO; +WARF2 PO; +WARF5 PO; +[UNRECOGNIZED DRUG - CODE] IV; -[UNRECOGNIZED DRUG - CODE] TP
[2018-02-18 11:16] VITALS: BP 105/68
== END | disposition home or self-care (01) ==
LOC: SRCNTR 10:51
PROVIDERS: ATTEND Internal Medicine Clinical Cardiac Electrophysiology
DX: Z45.02 Encounter for adjustment and management of automatic implantable cardiac defibrillator (principal); I11.0 Hypertensive heart disease with heart failure; I50.9 Heart failure, unspecified; R55 Syncope and collapse; E78.00 Pure hypercholesterolemia, unspecified; E03.9 Hypothyroidism, unspecified
CPT/HCPCS: G0463

== ENCOUNTER 2018-02-22 10:09 | Emergency (ER) | payer MEDICARE ==
[~2018-02-22] VITALS: Ht 177.8 cm; Wt 90.9 kg
[~2018-02-22 10:09] MED LIST changes: -OXYC10IR PO; -WARF2 PO
[2018-02-22 12:08] LABS: BASOPHILS % (AUTO) 0.9 % (0.0-2.0); EOSINOPHILS % (AUTO) 3.4 % (1.0-6.0); HEMATOCRIT 42.3 % (41-53); HEMOGLOBIN 14.2 g/dL (13.5-17.5); LYMPHOCYTES % (AUTO) 21.3 % (22.0-44.0); MEAN CORPUSCULAR HEMOGLOBIN 29.8 pg (26.0-34.0); MEAN CORPUSCULAR HGB CONC 33.6 G/dL (31.0-37.0); MEAN CORPUSCULAR VOLUME 89 fL (80-100); MONOCYTES # (AUTO) 0.4 K/uL (0.1-1.0); MONOCYTES % (AUTO) 8.5 % (2.0-9.0); NEUTROPHILS % (AUTO) 65.9 % (40.0-70.0); RED BLOOD CELL COUNT(AUTO) 4.77 MIL/uL (4.50-5.90); RED CELL DISTRIBUTION WIDTH 15.7 % (11.5-14.5)
[2018-02-22 12:19] LABS: ANION GAP 7 mmol/L (8-16); CALCIUM, TOTAL 8.7 mg/dL (8.8-10.5); CARBON DIOXIDE 29 mmol/L (22-29); CHLORIDE 102 mmol/L (98-107); CREATININE 0.79 mg/dL (0.60-1.30); GLOMERULAR FILTR. RATE CALC > 60 mL/min (>60); GLUCOSE,RANDOM 102 mg/dL (70-110); POTASSIUM 4.4 mmol/L (3.5-5.1); SODIUM SERUM 138 mmol/L (136-145); UREA NITROGEN, BLOOD 17 mg/dL (7-18)
[2018-02-22 12:28] LABS: ALANINE AMINOTRANSFERASE 200 U/L (12-78); ALBUMIN 2.6 g/dL (3.4-5.0); ALKALINE PHOSPHATASE 108 U/L (46-116); ASPARTATE AMINOTRANSFERASE 229 U/L (15-37); BILIRUBIN,TOTAL 0.4 mg/dL (0.1-1.0); CREATINE KINASE, TOTAL ONLY 666 U/L (39-308); PLATELET COUNT (AUTO) 98 K/uL (150-450); TOTAL PROTEIN, SERUM 6.8 g/dL (6.4-8.2)
[2018-02-22] MEDS ORDERED: SODIUM CHLORIDE 0.9% 500 ML IV ONE (14:15)
[2018-02-22] MEDS ORDERED: CefTRIAXone 1 GM/DEXTROSE 50 ML IV ONE (18:15)
[2018-02-22] MEDS ORDERED: OXYC10IR PO (18:20)
[2018-02-22] MEDS ORDERED: WARF2 PO (18:20)
[2018-02-22 18:46] VITALS: BP 101/72
== END 2018-02-22 18:57 | disposition home or self-care (01) ==
LOC: EMS 10:10
DX: G89.18 Other acute postprocedural pain (principal); R07.89 Other chest pain; I10 Essential (primary) hypertension; E03.9 Hypothyroidism, unspecified; I25.2 Old myocardial infarction; F41.9 Anxiety disorder, unspecified; E78.00 Pure hypercholesterolemia, unspecified; F12.90 Cannabis use, unspecified, uncomplicated; F17.210 Nicotine dependence, cigarettes, uncomplicated; Z88.0 Allergy status to penicillin; Z88.5 Allergy status to narcotic agent; Z95.1 Presence of aortocoronary bypass graft
CPT/HCPCS: 36415; 71045; 80053; 82550; 84484; 85025; 93005; 96374; 99284; J0696; J7040

== ENCOUNTER 2018-06-26 06:29 | Inpatient (IN) | payer MEDICARE, OTHER ==
[~2018-06-26] VITALS: Ht 177.8 cm; Wt 106.4 kg
[~2018-06-26 06:29] MED LIST changes: -ATOR40TA28 PO; -CEFX1I IM; -OXYC10 PO; +OXYC10IR PO; +WARF2 PO; -WARF5 PO; -[UNRECOGNIZED DRUG - CODE] IV
[2018-06-26] MEDS ORDERED: ONDANSETRON HCL 4 MG/2 ML VIAL IVP ONE (07:00)
[2018-06-26] MEDS ORDERED: MORPHINE SULFATE 2 MG/ML SYRINGE IVP ONE (07:00)
[2018-06-26 07:26] LABS: ANION GAP 9 mmol/L (8-16); CALCIUM, TOTAL 7.9 mg/dL (8.8-10.5); CARBON DIOXIDE 26 mmol/L (22-29); CHLORIDE 109 mmol/L (98-107); CREATININE 0.73 mg/dL (0.60-1.30); GLOMERULAR FILTR. RATE CALC > 60 mL/min (>60); GLUCOSE,RANDOM 111 mg/dL (70-110); POTASSIUM 3.6 mmol/L (3.5-5.1); SODIUM SERUM 144 mmol/L (136-145); UREA NITROGEN, BLOOD 14 mg/dL (7-18)
[2018-06-26 07:32] LABS: ALANINE AMINOTRANSFERASE 118 U/L (12-78); ALBUMIN 2.5 g/dL (3.4-5.0); ALKALINE PHOSPHATASE 118 U/L (46-116); ASPARTATE AMINOTRANSFERASE 100 U/L (15-37); BASOPHILS % (AUTO) 3.5 % (0.0-2.0); BILIRUBIN,TOTAL 0.3 mg/dL (0.1-1.0); EOSINOPHILS % (AUTO) 2.5 % (1.0-6.0); HEMATOCRIT 41.7 % (41-53); HEMOGLOBIN 13.9 g/dL (13.5-17.5); LYMPHOCYTES # (AUTO) 1.8 K/uL (1.0-4.8); LYMPHOCYTES % (AUTO) 29.5 % (22.0-44.0); MEAN CORPUSCULAR HGB CONC 33.4 G/dL (31.0-37.0); MEAN CORPUSCULAR VOLUME 90 fL (80-100); MONOCYTES # (AUTO) 0.4 K/uL (0.1-1.0); MONOCYTES % (AUTO) 6.3 % (2.0-9.0); NEUTROPHILS # (AUTO) 3.5 K/uL (1.8-7.7); NEUTROPHILS % (AUTO) 58.2 % (40.0-70.0); PLATELET COUNT (AUTO) 95 K/uL (150-450); RED BLOOD CELL COUNT(AUTO) 4.65 MIL/uL (4.50-5.90); RED CELL DISTRIBUTION WIDTH 15.2 % (11.5-14.5); TOTAL PROTEIN, SERUM 7.1 g/dL (6.4-8.2)
[2018-06-26 07:33] LABS: B-TYPE NATRIURETIC PEPTIDE 111 pg/mL (0-100)
[2018-06-26 07:34] LABS: INR 1.1 (0.9-1.1); PROTHROMBIN TIME 11.4 SEC (9.4-11.6)
[2018-06-26] MEDS ORDERED: ASPIRIN 325 MG EC TABLET PO ONE (08:15)
[2018-06-26 09:47] VITALS: BP 106/59
[2018-06-26 12:00] VITALS: BP 130/85
[2018-06-26] MEDS: NITROGLYCERIN 2% (1 GM=INCH) PACKET TP SCH ×2 (12:14→17:41)
[2018-06-26] MEDS: MORPHINE SULFATE 2 MG/ML SYRINGE IVP PRN ×3 (12:14→21:05)
[2018-06-26] MEDS: OxyCODONE HCL/ACETAMINOPHEN 5-325 MG TABLET PO PRN ×2 (13:13→17:42)
[2018-06-26] MEDS: CARVEDILOL 6.25 MG TABLET PO SCH ×2 (15:55→20:25)
[2018-06-26] MEDS: FUROSEMIDE 40 MG/4 ML VIAL IVP SCH (15:56)
[2018-06-26 16:13] VITALS: BP 131/87
[2018-06-26] MEDS: APIXABAN 5 MG TABLET PO SCH (20:25)
[2018-06-26 20:38] VITALS: BP 133/87
[2018-06-26] MEDS ORDERED: OxyCODONE HCL/ACETAMINOPHEN 5-325 MG TABLET PO PRN (22:30)
[2018-06-26] MEDS: DOCUSATE SODIUM 100 MG CAPSULE PO SCH (22:30)
[2018-06-26] MEDS ORDERED: MAGNESIUM HYDROXIDE SUSPENSION 30 ML UDCUP PO PRN (22:30)
[2018-06-26] MEDS ORDERED: ACETAMINOPHEN 325 MG TABLET PO PRN (22:30)
[2018-06-26] MEDS ORDERED: 0.9% SODIUM CHLORIDE 10 ML SYRINGE IVP PRN (22:30)
[2018-06-26] MEDS ORDERED: ONDANSETRON HCL 4 MG/2 ML VIAL IVP PRN (22:30)
[2018-06-27 00:42] VITALS: BP 125/70
[2018-06-27] MEDS: NITROGLYCERIN 2% (1 GM=INCH) PACKET TP SCH ×5 (01:02→23:44)
[2018-06-27 04:13] VITALS: BP 133/80
[2018-06-27] MEDS: MORPHINE SULFATE 2 MG/ML SYRINGE IVP PRN ×4 (06:16→20:41)
[2018-06-27 06:21] LABS: ANION GAP 8 mmol/L (8-16); CALCIUM, TOTAL 8.1 mg/dL (8.8-10.5); CARBON DIOXIDE 25 mmol/L (22-29); CHLORIDE 102 mmol/L (98-107); CHOL/HDL RATIO 2.4 (4.2-7.3); CHOLESTEROL 131 mg/dL (131-200); CREATININE 0.84 mg/dL (0.60-1.30); GLOMERULAR FILTR. RATE CALC > 60 mL/min (>60); GLUCOSE,RANDOM 107 mg/dL (70-110); HDL CHOLESTEROL 54 mg/dL (40-60); LDL CHOL (CALC.) 64 mg/dL (0-130); SODIUM SERUM 135 mmol/L (136-145); TRIGLYCERIDES 67 mg/dL (15-150); UREA NITROGEN, BLOOD 18 mg/dL (7-18)
[2018-06-27 07:11] LABS: EOSINOPHILS % (AUTO) 2.6 % (1.0-6.0); HEMATOCRIT 37.8 % (41-53); HEMOGLOBIN 12.6 g/dL (13.5-17.5); LYMPHOCYTES % (AUTO) 20.4 % (22.0-44.0); MEAN CORPUSCULAR HEMOGLOBIN 30.1 pg (26.0-34.0); MEAN CORPUSCULAR HGB CONC 33.3 G/dL (31.0-37.0); MEAN CORPUSCULAR VOLUME 90 fL (80-100); MONOCYTES # (AUTO) 0.4 K/uL (0.1-1.0); MONOCYTES % (AUTO) 7.9 % (2.0-9.0); NEUTROPHILS # (AUTO) 3.4 K/uL (1.8-7.7); NEUTROPHILS % (AUTO) 68.1 % (40.0-70.0); PLATELET COUNT (AUTO) 83 K/uL (150-450); RED BLOOD CELL COUNT(AUTO) 4.18 MIL/uL (4.50-5.90); RED CELL DISTRIBUTION WIDTH 14.5 % (11.5-14.5)
[2018-06-27 07:42] LABS: HEMOGLOBIN A1C 6.2 % (4.5-6.2)
[2018-06-27 08:00] VITALS: BP 157/93
[2018-06-27] MEDS: DOCUSATE SODIUM 100 MG CAPSULE PO SCH ×2 (08:03→20:42)
[2018-06-27] MEDS: CARVEDILOL 6.25 MG TABLET PO SCH ×2 (08:03→20:40)
[2018-06-27] MEDS: FUROSEMIDE 40 MG/4 ML VIAL IVP SCH (08:04)
[2018-06-27] MEDS: APIXABAN 5 MG TABLET PO SCH ×2 (08:05→20:40)
[2018-06-27] MEDS: PANTOPRAZOLE SODIUM 40 MG DR TABLET PO SCH (08:05)
[2018-06-27] MEDS: OxyCODONE HCL/ACETAMINOPHEN 5-325 MG TABLET PO PRN (08:57)
[2018-06-27] MEDS ORDERED: ASPIRIN 325 MG EC TABLET PO SCH ×2 (09:00)
[2018-06-27 11:44] VITALS: BP 127/80
[2018-06-27 15:53] VITALS: BP 144/80
[2018-06-27 20:30] VITALS: BP 116/71
[2018-06-27] MEDS ORDERED: MAGNESIUM SULFATE 2 GM/WATER 50 ML IV ONE (23:30)
[2018-06-27] MEDS ORDERED: SODIUM CHLORIDE 0.9% 100 ML ONE (23:35)
[2018-06-28 00:37] VITALS: BP 145/88
[2018-06-28] MEDS: MORPHINE SULFATE 2 MG/ML SYRINGE IVP PRN ×3 (00:50→09:49)
[2018-06-28 05:27] LABS: AMPHET/METH SCREEN,URINE NEGATIVE (NEGATIVE); BARBITURATE SCREEN, URINE NEGATIVE (NEGATIVE); BENZODIAZEPINES SCREEN,URINE NEGATIVE (NEGATIVE); CANNABINOID SCREEN,URINE NEGATIVE (NEGATIVE); COCAINE SCREEN,URINE NEGATIVE (NEGATIVE); METHADONE SCREEN, URINE NEGATIVE (NEGATIVE); OPIATE SCREEN,URINE POSITIVE (NEGATIVE); PHENCYCLIDINE SCREEN,URINE NEGATIVE (NEGATIVE)
[2018-06-28 05:34] VITALS: BP 148/83
[2018-06-28] MEDS: NITROGLYCERIN 2% (1 GM=INCH) PACKET TP SCH ×4 (06:12→23:07)
[2018-06-28 06:18] LABS: ALANINE AMINOTRANSFERASE 109 U/L (12-78); ALBUMIN 2.9 g/dL (3.4-5.0); ALKALINE PHOSPHATASE 110 U/L (46-116); ANION GAP 9 mmol/L (8-16); ASPARTATE AMINOTRANSFERASE 114 U/L (15-37); BILIRUBIN,TOTAL 0.5 mg/dL (0.1-1.0); CALCIUM, TOTAL 8.7 mg/dL (8.8-10.5); CARBON DIOXIDE 25 mmol/L (22-29); CHLORIDE 102 mmol/L (98-107); GLOMERULAR FILTR. RATE CALC > 60 mL/min (>60); GLUCOSE,RANDOM 102 mg/dL (70-110); POTASSIUM 4.2 mmol/L (3.5-5.1); SODIUM SERUM 136 mmol/L (136-145); TOTAL PROTEIN, SERUM 7.2 g/dL (6.4-8.2); UREA NITROGEN, BLOOD 22 mg/dL (7-18)
[2018-06-28] MEDS: APIXABAN 5 MG TABLET PO SCH ×2 (08:03→20:36)
[2018-06-28 08:04] VITALS: BP 150/97
[2018-06-28] MEDS: DOCUSATE SODIUM 100 MG CAPSULE PO SCH ×2 (08:04→20:36)
[2018-06-28] MEDS: PANTOPRAZOLE SODIUM 40 MG DR TABLET PO SCH (08:04)
[2018-06-28] MEDS: FUROSEMIDE 40 MG/4 ML VIAL IVP SCH (08:05)
[2018-06-28] MEDS: CARVEDILOL 6.25 MG TABLET PO SCH ×2 (08:05→20:36)
[2018-06-28] MEDS: ASPIRIN 81 MG EC TABLET PO SCH (08:42)
[2018-06-28 10:52] VITALS: BP 102/65
[2018-06-28] MEDS ORDERED: ZOLPIDEM TARTRATE 10 MG TABLET PO PRN (11:45)
[2018-06-28] MEDS: OxyCODONE HCL/ACETAMINOPHEN 5-325 MG TABLET PO PRN ×2 (14:19→20:41)
[2018-06-28 16:48] VITALS: BP 134/67
[2018-06-28 21:08] VITALS: BP 131/85
[2018-06-29 00:20] VITALS: BP 128/77
[2018-06-29] MEDS: OxyCODONE HCL/ACETAMINOPHEN 5-325 MG TABLET PO PRN ×3 (01:44→13:35)
[2018-06-29 05:43] VITALS: BP 110/86
[2018-06-29] MEDS: NITROGLYCERIN 2% (1 GM=INCH) PACKET TP SCH ×2 (06:28→12:00)
[2018-06-29 07:40] VITALS: BP 130/86
[2018-06-29] MEDS: PANTOPRAZOLE SODIUM 40 MG DR TABLET PO SCH (08:08)
[2018-06-29] MEDS: DOCUSATE SODIUM 100 MG CAPSULE PO SCH (08:08)
[2018-06-29] MEDS: APIXABAN 5 MG TABLET PO SCH (08:08)
[2018-06-29] MEDS: ASPIRIN 81 MG EC TABLET PO SCH (08:08)
[2018-06-29] MEDS: CARVEDILOL 6.25 MG TABLET PO SCH (08:08)
[2018-06-29] MEDS: FUROSEMIDE 40 MG/4 ML VIAL IVP SCH (08:09)
[2018-06-29] MEDS ORDERED: CARV6 PO (14:57)
[2018-06-29] MEDS ORDERED: APIX5TAB PO (14:57)
[2018-06-29] MEDS ORDERED: ASPI-1182 PO (14:57)
[2018-06-29] MEDS ORDERED: NTP TD (14:58)
[2018-06-29] MEDS ORDERED: DSS100 PO (14:58)
[2018-06-29] MEDS ORDERED: FURO40 PO (14:58)
[2018-06-29] MEDS ORDERED: ACET-2247 PO (14:59)
[2018-06-29] MEDS ORDERED: PANT40TA25 PO (14:59)
[2018-06-29] MEDS ORDERED: MOM30 PO (15:00)
[2018-06-29] MEDS ORDERED: OXYC-530 PO (15:00)
[2018-06-29] MEDS ORDERED: ZOLP10TA7 PO (15:01)
== END 2018-06-29 17:10 | DRG 291 ==
LOC: EMS 06:29 → 5S 09:01
PROVIDERS: ADMIT Internal Medicine; ATTEND Internal Medicine
DX: I11.0 Hypertensive heart disease with heart failure (principal); I50.21 Acute systolic (congestive) heart failure; E43 Unspecified severe protein-calorie malnutrition; I25.5 Ischemic cardiomyopathy; K70.10 Alcoholic hepatitis without ascites; I73.9 Peripheral vascular disease, unspecified; I25.10 Atherosclerotic heart disease of native coronary artery without angina pectoris; I48.0 Paroxysmal atrial fibrillation; J44.9 Chronic obstructive pulmonary disease, unspecified; E03.9 Hypothyroidism, unspecified; E78.00 Pure hypercholesterolemia, unspecified; F12.90 Cannabis use, unspecified, uncomplicated; F10.10 Alcohol abuse, uncomplicated; I51.3 Intracardiac thrombosis, not elsewhere classified; K74.60 Unspecified cirrhosis of liver; D69.6 Thrombocytopenia, unspecified; Z95.1 Presence of aortocoronary bypass graft; Z91.14 Patient's other noncompliance with medication regimen; Z95.810 Presence of automatic (implantable) cardiac defibrillator; Z87.891 Personal history of nicotine dependence; Z79.01 Long term (current) use of anticoagulants; Z91.19 Patient's noncompliance with other medical treatment and regimen; Z68.33 Body mass index [BMI] 33.0-33.9, adult; F41.9 Anxiety disorder, unspecified
CPT/HCPCS: 80307; 83036; 83735; 93005; 93041; 93306; 97110; 97116; 97162; 97530; 99291; G0378; J1940; J2270; J2405; J3475; J7050

== ENCOUNTER 2019-02-11 09:09 | Inpatient (IN) | payer MEDICARE, OTHER ==
[~2019-02-11] VITALS: Ht 182.9 cm; Wt 126.5 kg
[~2019-02-11 09:09] MED LIST changes: +ACET-2247 PO; -ALBU8HFA PO; -ALPR0.5T8 PO; +APIX5TAB PO; +ASPI-1182 PO; -ASPI81TA42 PO; -CARV12 PO; +CARV6 PO; +FURO40 PO; -IPRNEB IH; -LISI-662 PO; +MOM30 PO; +NTP TP; +OXYC-530 PO; -OXYC10IR PO; +PANT40TA25 PO; -WARF2 PO; +ZOLP10TA7 PO
[2019-02-11] MEDS ORDERED: FOLI1 PO (09:36)
[2019-02-11] MEDS ORDERED: LIDO700A15 TD (09:36)
[2019-02-11] MEDS ORDERED: HYD25 PO (09:36)
[2019-02-11] MEDS ORDERED: BUME1TAB34 PO (09:36)
[2019-02-11] MEDS ORDERED: TRAZ-252 PO (09:36)
[2019-02-11] MEDS ORDERED: RIVA20TA PO (09:36)
[2019-02-11] MEDS ORDERED: ATOR40TA28 PO (09:36)
[2019-02-11] MEDS ORDERED: LISI-660 PO (09:36)
[2019-02-11] MEDS ORDERED: ISOS30TA6 PO (09:36)
[2019-02-11] MEDS ORDERED: LEVO100 PO (09:36)
[2019-02-11] MEDS ORDERED: SPIR25 PO (09:36)
[2019-02-11] MEDS ORDERED: ADV100 IH (09:36)
[2019-02-11] MEDS ORDERED: MORPHINE SULFATE 4 MG/ML SYRINGE IVP ONE (09:45)
[2019-02-11 10:12] LABS: BASOPHILS % (AUTO) 1.1 % (0.0-2.0); HEMATOCRIT 39.4 % (41-53); HEMOGLOBIN 12.9 g/dL (13.5-17.5); LYMPHOCYTES % (AUTO) 17.4 % (22.0-44.0); MEAN CORPUSCULAR HEMOGLOBIN 28.1 pg (26.0-34.0); MEAN CORPUSCULAR HGB CONC 32.7 G/dL (31.0-37.0); MEAN CORPUSCULAR VOLUME 86 fL (80-100); MONOCYTES # (AUTO) 0.7 K/uL (0.1-1.0); NEUTROPHILS # (AUTO) 3.9 K/uL (1.8-7.7); NEUTROPHILS % (AUTO) 68.5 % (40.0-70.0); RED BLOOD CELL COUNT(AUTO) 4.59 MIL/uL (4.50-5.90); RED CELL DISTRIBUTION WIDTH 20.6 % (11.5-14.5)
[2019-02-11 10:23] LABS: INR 1.3 (0.9-1.1); PROTHROMBIN TIME 13.6 SEC (9.4-11.6)
[2019-02-11 10:30] LABS: ANION GAP 8 mmol/L (8-16); CALCIUM, TOTAL 8.2 mg/dL (8.8-10.5); CARBON DIOXIDE 26 mmol/L (22-29); CHLORIDE 104 mmol/L (98-107); CREATININE 0.94 mg/dL (0.60-1.30); GLOMERULAR FILTR. RATE CALC > 60 mL/min (>60); GLUCOSE,RANDOM 124 mg/dL (70-110); SODIUM SERUM 138 mmol/L (136-145); UREA NITROGEN, BLOOD 8 mg/dL (7-18)
[2019-02-11 10:35] LABS: ALANINE AMINOTRANSFERASE 88 U/L (12-78); ALBUMIN 2.1 g/dL (3.4-5.0); ALKALINE PHOSPHATASE 173 U/L (46-116); ASPARTATE AMINOTRANSFERASE 141 U/L (15-37); BILIRUBIN,TOTAL 1.5 mg/dL (0.1-1.0); TOTAL PROTEIN, SERUM 7.1 g/dL (6.4-8.2)
[2019-02-11 10:40] LABS: B-TYPE NATRIURETIC PEPTIDE 141 pg/mL (0-100)
[2019-02-11] MEDS ORDERED: ACETAMINOPHEN 325 MG TABLET PO PRN (10:45)
[2019-02-11] MEDS ORDERED: MAGNESIUM HYDROXIDE SUSPENSION 30 ML UDCUP PO PRN (10:45)
[2019-02-11 10:48] LABS: PLATELET COUNT (AUTO) 73 K/uL (150-450)
[2019-02-11] MEDS: MORPHINE SULFATE 2 MG/ML SYRINGE IVP PRN (15:20)
[2019-02-11] MEDS ORDERED: RIVAROXABAN 20 MG TABLET PO SCH (17:30)
[2019-02-11 18:16] VITALS: BP 161/102
[2019-02-11 20:09] VITALS: BP 123/82
[2019-02-11] MEDS: CARVEDILOL 12.5 MG TABLET PO SCH (20:58)
[2019-02-11] MEDS: BUMETANIDE 0.25 MG/ML 4 ML VIAL IVP SCH (20:58)
[2019-02-11] MEDS: DOCUSATE SODIUM 100 MG CAPSULE PO SCH (20:59)
[2019-02-11] MEDS ORDERED: AMIODARONE HCL 150 MG in DEXTROSE 5%-WATER 97 ML IV ONE (21:15)
[2019-02-11] MEDS ORDERED: AMIODARONE HCL 360 MG in DEXTROSE 5%-WATER 242.8 ML IV ONE (21:30)
[2019-02-11] MEDS ORDERED: INFLUENZA VIRUS VACCINE QVS 2019-20 (3YR+)/PF 60 MCG/0.5 ML SYRINGE IM ONE (23:30)
[2019-02-11 23:41] VITALS: BP 114/71
[2019-02-12] MEDS: ZOLPIDEM TARTRATE 5 MG TABLET PO PRN (01:53)
[2019-02-12] MEDS: IPRATROPIUM BROMIDE 0.5 MG/2.5 ML NEB SOLUTION NEB PRN ×2 (03:30→22:16)
[2019-02-12] MEDS: ALBUTEROL SULFATE 2.5 MG/0.5 ML NEB SOLUTION NEB PRN ×2 (03:30→22:16)
[2019-02-12] MEDS ORDERED: AMIODARONE HCL 540 MG in DEXTROSE 5%-WATER 239.2 ML IV ONE (03:30)
[2019-02-12] MEDS ORDERED: 0.9% SODIUM CHLORIDE 5 ML NEB SOLUTION NEB ONE (03:31)
[2019-02-12] MEDS ORDERED: ALBUTEROL SULFATE 2.5 MG/0.5 ML NEB SOLUTION NEB ONE (03:31)
[2019-02-12] MEDS ORDERED: IPRATROPIUM BROMIDE 0.5 MG/2.5 ML NEB SOLUTION NEB ONE (03:31)
[2019-02-12] MEDS: MORPHINE SULFATE 2 MG/ML SYRINGE IVP PRN ×5 (04:35→23:17)
[2019-02-12 05:29] VITALS: BP 110/69
[2019-02-12 07:48] VITALS: BP 112/61
[2019-02-12 08:28] LABS: ALANINE AMINOTRANSFERASE 73 U/L (12-78); ALBUMIN 1.8 g/dL (3.4-5.0); ALKALINE PHOSPHATASE 134 U/L (46-116); ANION GAP 7 mmol/L (8-16); ASPARTATE AMINOTRANSFERASE 117 U/L (15-37); CALCIUM, TOTAL 7.7 mg/dL (8.8-10.5); CARBON DIOXIDE 26 mmol/L (22-29); CHLORIDE 103 mmol/L (98-107); CREATININE 0.71 mg/dL (0.60-1.30); GLOMERULAR FILTR. RATE CALC > 60 mL/min (>60); GLUCOSE,RANDOM 96 mg/dL (70-110); SODIUM SERUM 136 mmol/L (136-145); TOTAL PROTEIN, SERUM 6.1 g/dL (6.4-8.2); UREA NITROGEN, BLOOD 11 mg/dL (7-18)
[2019-02-12] MEDS: CARVEDILOL 12.5 MG TABLET PO SCH ×2 (09:00→20:33)
[2019-02-12] MEDS: PANTOPRAZOLE SODIUM 40 MG DR TABLET PO SCH (09:00)
[2019-02-12] MEDS: BUMETANIDE 0.25 MG/ML 4 ML VIAL IVP SCH ×2 (09:00→20:34)
[2019-02-12] MEDS: DOCUSATE SODIUM 100 MG CAPSULE PO SCH ×2 (09:00→20:33)
[2019-02-12] MEDS: SPIRONOLACTONE 25 MG TABLET PO SCH (09:00)
[2019-02-12] MEDS ORDERED: MAGNESIUM SULFATE 4 GM/WATER 100 ML IV PRN (11:15)
[2019-02-12 11:38] VITALS: BP 116/70
[2019-02-12 15:35] VITALS: BP 118/76
[2019-02-12] MEDS: MAGNESIUM SULFATE 2 GM/WATER 50 ML IV PRN (18:32)
[2019-02-12 20:30] VITALS: BP 110/67
[2019-02-12] MEDS ORDERED: AMIODARONE HCL 750 MG in DEXTROSE 5%-WATER 485 ML IV SCH (21:30)
[2019-02-12 23:15] VITALS: BP 105/65
[2019-02-13] MEDS: ZOLPIDEM TARTRATE 5 MG TABLET PO PRN (00:28)
[2019-02-13 03:12] VITALS: BP 108/65
[2019-02-13] MEDS: MORPHINE SULFATE 2 MG/ML SYRINGE IVP PRN ×3 (04:07→13:36)
[2019-02-13 07:03] LABS: BASOPHILS % (AUTO) 1.3 % (0.0-2.0); HEMATOCRIT 34.4 % (41-53); HEMOGLOBIN 11.5 g/dL (13.5-17.5); LYMPHOCYTES # (AUTO) 0.6 K/uL (1.0-4.8); LYMPHOCYTES % (AUTO) 21.6 % (22.0-44.0); MEAN CORPUSCULAR HEMOGLOBIN 28.7 pg (26.0-34.0); MEAN CORPUSCULAR HGB CONC 33.6 G/dL (31.0-37.0); MEAN CORPUSCULAR VOLUME 86 fL (80-100); MONOCYTES # (AUTO) 0.3 K/uL (0.1-1.0); MONOCYTES % (AUTO) 10.7 % (2.0-9.0); NEUTROPHILS # (AUTO) 1.9 K/uL (1.8-7.7); NEUTROPHILS % (AUTO) 64.4 % (40.0-70.0); PLATELET COUNT (AUTO) 48 K/uL (150-450); RED BLOOD CELL COUNT(AUTO) 4.02 MIL/uL (4.50-5.90); RED CELL DISTRIBUTION WIDTH 19.8 % (11.5-14.5)
[2019-02-13 07:11] LABS: INR 1.7 (0.9-1.1); PROTHROMBIN TIME 17.3 SEC (9.4-11.6)
[2019-02-13 08:15] VITALS: BP 111/57
[2019-02-13] MEDS: SPIRONOLACTONE 25 MG TABLET PO SCH (09:09)
[2019-02-13] MEDS: LISINOPRIL 5 MG TABLET PO SCH (09:09)
[2019-02-13] MEDS: DOCUSATE SODIUM 100 MG CAPSULE PO SCH ×2 (09:09→21:17)
[2019-02-13] MEDS: CARVEDILOL 12.5 MG TABLET PO SCH ×2 (09:09→21:00)
[2019-02-13] MEDS: BUMETANIDE 0.25 MG/ML 4 ML VIAL IVP SCH (09:09)
[2019-02-13] MEDS: PANTOPRAZOLE SODIUM 40 MG DR TABLET PO SCH (09:09)
[2019-02-13 11:56] VITALS: BP 99/57
[2019-02-13] MEDS: MAGNESIUM SULFATE 2 GM/WATER 50 ML IV PRN (13:36)
[2019-02-13 16:07] VITALS: BP 112/54
[2019-02-13 21:32] VITALS: BP 91/46
[2019-02-13 23:14] VITALS: BP 103/55
[2019-02-14] MEDS: BUMETANIDE 0.25 MG/ML 4 ML VIAL IVP SCH ×3 (02:17→20:35)
[2019-02-14 06:22] VITALS: BP 115/61
[2019-02-14 06:37] LABS: BASOPHILS % (AUTO) 1.3 % (0.0-2.0); EOSINOPHILS % (AUTO) 1.8 % (1.0-6.0); HEMATOCRIT 31.8 % (41-53); HEMOGLOBIN 10.7 g/dL (13.5-17.5); LYMPHOCYTES # (AUTO) 0.6 K/uL (1.0-4.8); LYMPHOCYTES % (AUTO) 24.7 % (22.0-44.0); MEAN CORPUSCULAR HEMOGLOBIN 28.9 pg (26.0-34.0); MEAN CORPUSCULAR HGB CONC 33.6 G/dL (31.0-37.0); MEAN CORPUSCULAR VOLUME 86 fL (80-100); MONOCYTES # (AUTO) 0.3 K/uL (0.1-1.0); MONOCYTES % (AUTO) 12.8 % (2.0-9.0); NEUTROPHILS # (AUTO) 1.5 K/uL (1.8-7.7); NEUTROPHILS % (AUTO) 59.4 % (40.0-70.0); PLATELET COUNT (AUTO) 44 K/uL (150-450); RED BLOOD CELL COUNT(AUTO) 3.71 MIL/uL (4.50-5.90); RED CELL DISTRIBUTION WIDTH 20.1 % (11.5-14.5)
[2019-02-14 06:55] LABS: ANION GAP 7 mmol/L (8-16); CALCIUM, TOTAL 7.7 mg/dL (8.8-10.5); CARBON DIOXIDE 27 mmol/L (22-29); CHLORIDE 102 mmol/L (98-107); CREATININE 0.99 mg/dL (0.60-1.30); GLOMERULAR FILTR. RATE CALC > 60 mL/min (>60); GLUCOSE,RANDOM 90 mg/dL (70-110); POTASSIUM 3.5 mmol/L (3.5-5.1); SODIUM SERUM 136 mmol/L (136-145); UREA NITROGEN, BLOOD 17 mg/dL (7-18)
[2019-02-14 07:16] VITALS: BP 95/50
[2019-02-14] MEDS: MORPHINE SULFATE 2 MG/ML SYRINGE IVP PRN ×3 (08:51→21:44)
[2019-02-14] MEDS: CARVEDILOL 12.5 MG TABLET PO SCH ×2 (08:52→20:35)
[2019-02-14] MEDS: PANTOPRAZOLE SODIUM 40 MG DR TABLET PO SCH (08:52)
[2019-02-14] MEDS: SPIRONOLACTONE 50 MG TABLET PO SCH (08:52)
[2019-02-14] MEDS: DOCUSATE SODIUM 100 MG CAPSULE PO SCH ×2 (08:52→20:35)
[2019-02-14] MEDS: LISINOPRIL 5 MG TABLET PO SCH (08:52)
[2019-02-14 11:11] VITALS: BP 97/50
[2019-02-14] MEDS ORDERED: PHYTONADIONE 10 MG/1 ML AMP SQ ONE (15:00)
[2019-02-14 15:20] VITALS: BP 95/55
[2019-02-14] MEDS: MULTIVITAMINS WITH MINERALS, THERAPEUTIC TABLET PO SCH (17:26)
[2019-02-14 19:30] VITALS: BP 114/63
[2019-02-14] MEDS: MAGNESIUM SULFATE 2 GM/WATER 50 ML IV PRN (22:07)
[2019-02-14 23:30] VITALS: BP 95/58
[2019-02-15] VITALS (12 sets, daily range): BP systolic 95–114; BP diastolic 46–69
[2019-02-15 06:51] LABS: BASOPHILS % (AUTO) 0.9 % (0.0-2.0); EOSINOPHILS % (AUTO) 1.9 % (1.0-6.0); HEMATOCRIT 29.3 % (41-53); HEMOGLOBIN 9.9 g/dL (13.5-17.5); LYMPHOCYTES # (AUTO) 0.7 K/uL (1.0-4.8); LYMPHOCYTES % (AUTO) 25.1 % (22.0-44.0); MEAN CORPUSCULAR HEMOGLOBIN 29.3 pg (26.0-34.0); MEAN CORPUSCULAR HGB CONC 33.9 G/dL (31.0-37.0); MEAN CORPUSCULAR VOLUME 87 fL (80-100); MONOCYTES # (AUTO) 0.4 K/uL (0.1-1.0); MONOCYTES % (AUTO) 14.2 % (2.0-9.0); NEUTROPHILS # (AUTO) 1.6 K/uL (1.8-7.7); NEUTROPHILS % (AUTO) 57.9 % (40.0-70.0); PLATELET COUNT (AUTO) 41 K/uL (150-450); RED BLOOD CELL COUNT(AUTO) 3.39 MIL/uL (4.50-5.90); RED CELL DISTRIBUTION WIDTH 20.6 % (11.5-14.5)
[2019-02-15 07:04] LABS: INR 1.4 (0.9-1.1); PROTHROMBIN TIME 14.7 SEC (9.4-11.6)
[2019-02-15 07:32] LABS: ANION GAP 4 mmol/L (8-16); CALCIUM, TOTAL 7.3 mg/dL (8.8-10.5); CARBON DIOXIDE 29 mmol/L (22-29); CHLORIDE 101 mmol/L (98-107); CREATININE 1.09 mg/dL (0.60-1.30); GLOMERULAR FILTR. RATE CALC > 60 mL/min (>60); GLUCOSE,RANDOM 119 mg/dL (70-110); POTASSIUM 3.5 mmol/L (3.5-5.1); SODIUM SERUM 134 mmol/L (136-145); UREA NITROGEN, BLOOD 17 mg/dL (7-18)
[2019-02-15] MEDS: LISINOPRIL 5 MG TABLET PO SCH (09:00)
[2019-02-15] MEDS: CARVEDILOL 12.5 MG TABLET PO SCH ×2 (09:00→20:13)
[2019-02-15] MEDS: DOCUSATE SODIUM 100 MG CAPSULE PO SCH ×2 (09:00→20:13)
[2019-02-15] MEDS: BUMETANIDE 0.25 MG/ML 4 ML VIAL IVP SCH ×3 (09:53→23:09)
[2019-02-15] MEDS: SPIRONOLACTONE 50 MG TABLET PO SCH ×2 (10:00→20:13)
[2019-02-15] MEDS: MAGNESIUM OXIDE 400 MG TABLET PO PRN ×3 (10:00→18:19)
[2019-02-15] MEDS: MULTIVITAMINS WITH MINERALS, THERAPEUTIC TABLET PO SCH (10:00)
[2019-02-15] MEDS: MORPHINE SULFATE 2 MG/ML SYRINGE IVP PRN ×3 (10:01→20:13)
[2019-02-15] MEDS: PANTOPRAZOLE SODIUM 40 MG DR TABLET PO SCH (10:08)
[2019-02-15] MEDS: IPRATROPIUM BROMIDE 0.5 MG/2.5 ML NEB SOLUTION NEB PRN (10:53)
[2019-02-15] MEDS: ALBUTEROL SULFATE 2.5 MG/0.5 ML NEB SOLUTION NEB PRN (10:53)
[2019-02-15] MEDS ORDERED: SODIUM CHLORIDE 0.9% 100 ML ONE (17:21)
[2019-02-16] VITALS (8 sets, daily range): BP systolic 87–114; BP diastolic 49–77
[2019-02-16] MEDS: MORPHINE SULFATE 2 MG/ML SYRINGE IVP PRN ×2 (05:36→16:25)
[2019-02-16 06:34] LABS: BASOPHILS % (AUTO) 0.9 % (0.0-2.0); EOSINOPHILS % (AUTO) 1.8 % (1.0-6.0); HEMOGLOBIN 10.1 g/dL (13.5-17.5); LYMPHOCYTES # (AUTO) 0.7 K/uL (1.0-4.8); LYMPHOCYTES % (AUTO) 23.2 % (22.0-44.0); MEAN CORPUSCULAR HEMOGLOBIN 29.1 pg (26.0-34.0); MEAN CORPUSCULAR HGB CONC 33.8 G/dL (31.0-37.0); MEAN CORPUSCULAR VOLUME 86 fL (80-100); MONOCYTES # (AUTO) 0.5 K/uL (0.1-1.0); MONOCYTES % (AUTO) 16.3 % (2.0-9.0); NEUTROPHILS # (AUTO) 1.7 K/uL (1.8-7.7); NEUTROPHILS % (AUTO) 57.8 % (40.0-70.0); PLATELET COUNT (AUTO) 45 K/uL (150-450); RED BLOOD CELL COUNT(AUTO) 3.49 MIL/uL (4.50-5.90); RED CELL DISTRIBUTION WIDTH 20.7 % (11.5-14.5)
[2019-02-16] MEDS: BUMETANIDE 0.25 MG/ML 4 ML VIAL IVP SCH ×2 (08:00→17:33)
[2019-02-16] MEDS: LISINOPRIL 5 MG TABLET PO SCH (09:00)
[2019-02-16] MEDS: SPIRONOLACTONE 50 MG TABLET PO SCH ×2 (09:00→20:58)
[2019-02-16] MEDS: CARVEDILOL 12.5 MG TABLET PO SCH ×2 (09:00→20:58)
[2019-02-16] MEDS: FOLIC ACID 1 MG TABLET PO SCH (09:21)
[2019-02-16] MEDS: MULTIVITAMINS WITH MINERALS, THERAPEUTIC TABLET PO SCH (09:21)
[2019-02-16] MEDS: PANTOPRAZOLE SODIUM 40 MG DR TABLET PO SCH (09:21)
[2019-02-16] MEDS: DOCUSATE SODIUM 100 MG CAPSULE PO SCH ×2 (09:21→20:58)
[2019-02-16] MEDS: THIAMINE HCL 100 MG TABLET PO SCH (09:32)
[2019-02-16] MEDS ORDERED: LORazepam 2 MG/ML VIAL IVP ONE (11:00)
[2019-02-16] MEDS: MAGNESIUM SULFATE 2 GM/WATER 50 ML IV PRN (11:15)
[2019-02-16] MEDS: APIXABAN 2.5 MG TABLET PO SCH ×2 (13:30→21:00)
[2019-02-16] MEDS ORDERED: MORPHINE SULFATE 2 MG/ML SYRINGE IVP ONE (19:00)
[2019-02-16] MEDS ORDERED: MORPHINE SULFATE 2 MG/ML SYRINGE IVP PRN (23:00)
[2019-02-17] VITALS (15 sets, daily range): BP systolic 92–127; BP diastolic 43–97
[2019-02-17] MEDS: MAGNESIUM SULFATE 2 GM/WATER 50 ML IV PRN (03:26)
[2019-02-17] MEDS: MORPHINE SULFATE 4 MG/ML SYRINGE IVP PRN ×4 (03:26→21:31)
[2019-02-17] MEDS ORDERED: SODIUM CHLORIDE 0.9% 500 ML IV ONE (07:35)
[2019-02-17] MEDS: BUMETANIDE 0.25 MG/ML 4 ML VIAL IVP SCH ×3 (08:00→16:00)
[2019-02-17] MEDS: DOCUSATE SODIUM 100 MG CAPSULE PO SCH ×2 (08:09→21:31)
[2019-02-17] MEDS: PANTOPRAZOLE SODIUM 40 MG DR TABLET PO SCH (08:09)
[2019-02-17] MEDS: THIAMINE HCL 100 MG TABLET PO SCH (08:09)
[2019-02-17] MEDS: MULTIVITAMINS WITH MINERALS, THERAPEUTIC TABLET PO SCH (08:09)
[2019-02-17] MEDS: FOLIC ACID 1 MG TABLET PO SCH (08:09)
[2019-02-17] MEDS ORDERED: LORazepam 2 MG/ML VIAL ONE (08:13)
[2019-02-17 08:30] LABS: BASOPHILS % (AUTO) 0.6 % (0.0-2.0); EOSINOPHILS % (AUTO) 2.2 % (1.0-6.0); HEMATOCRIT 33.3 % (41-53); LYMPHOCYTES # (AUTO) 0.8 K/uL (1.0-4.8); LYMPHOCYTES % (AUTO) 23.1 % (22.0-44.0); MEAN CORPUSCULAR HEMOGLOBIN 28.6 pg (26.0-34.0); MEAN CORPUSCULAR HGB CONC 33.1 G/dL (31.0-37.0); MEAN CORPUSCULAR VOLUME 86 fL (80-100); MONOCYTES # (AUTO) 0.5 K/uL (0.1-1.0); MONOCYTES % (AUTO) 15.8 % (2.0-9.0); NEUTROPHILS % (AUTO) 58.3 % (40.0-70.0); PLATELET COUNT (AUTO) 45 K/uL (150-450); RED BLOOD CELL COUNT(AUTO) 3.85 MIL/uL (4.50-5.90); RED CELL DISTRIBUTION WIDTH 20.2 % (11.5-14.5)
[2019-02-17 08:40] LABS: ANION GAP 4 mmol/L (8-16); CALCIUM, TOTAL 7.5 mg/dL (8.8-10.5); CARBON DIOXIDE 29 mmol/L (22-29); CHLORIDE 101 mmol/L (98-107); CREATININE 0.93 mg/dL (0.60-1.30); GLOMERULAR FILTR. RATE CALC > 60 mL/min (>60); GLUCOSE,RANDOM 98 mg/dL (70-110); POTASSIUM 4.1 mmol/L (3.5-5.1); SODIUM SERUM 134 mmol/L (136-145); UREA NITROGEN, BLOOD 14 mg/dL (7-18)
[2019-02-17] MEDS: SPIRONOLACTONE 50 MG TABLET PO SCH ×2 (09:00→21:00)
[2019-02-17] MEDS: APIXABAN 2.5 MG TABLET PO SCH (09:00)
[2019-02-17] MEDS: CARVEDILOL 12.5 MG TABLET PO SCH ×2 (09:00→21:00)
[2019-02-17] MEDS: LISINOPRIL 5 MG TABLET PO SCH (09:00)
[2019-02-17 11:20] LABS: SPECIMENTYPE,BODY FLUID PERITONEAL
[2019-02-17 12:33] LABS: APPEARANCE,SPUN,BODY FLUID CLEAR (CLEAR); APPEARANCE,UNSPUN,BODY FLUID HAZY (CLEAR); BASOPHILS,BODY FLUID 0 %; COLOR,BODY FLUID YELLOW (LT YELLOW); EOSINOPHILS,BF (ANAL) 0 %; LYMPHOCYTES,BODY FLUID 30 %; MONOCYTES,BODY FLUID 37 %; NEUTROPHILS,BODY FLUID 33 %; OTHER CELLS,BODY FLUID 0; TOTAL VOLUME,BODY FLUID 6425 mL; WBC, BODY FLUID 86 /cu. mm.
[2019-02-17] MEDS ORDERED: LISI-660 PO (14:39)
[2019-02-17] MEDS ORDERED: DOCU-275 PO (14:39)
[2019-02-17] MEDS ORDERED: CARV12 PO (14:39)
[2019-02-17] MEDS ORDERED: MULT-248 PO (14:40)
[2019-02-17] MEDS ORDERED: THIA100T67 PO (14:41)
[2019-02-17] MEDS: RIVAROXABAN 20 MG TABLET PO SCH (21:32)
[2019-02-18] VITALS (7 sets, daily range): BP systolic 94–111; BP diastolic 54–75
[2019-02-18] MEDS: MORPHINE SULFATE 4 MG/ML SYRINGE IVP PRN ×3 (01:46→12:26)
[2019-02-18] MEDS: BUMETANIDE 0.25 MG/ML 4 ML VIAL IVP SCH ×3 (08:00→16:00)
[2019-02-18] MEDS: LISINOPRIL 5 MG TABLET PO SCH (09:00)
[2019-02-18] MEDS: SPIRONOLACTONE 50 MG TABLET PO SCH (09:00)
[2019-02-18] MEDS: CARVEDILOL 12.5 MG TABLET PO SCH (09:00)
[2019-02-18] MEDS: THIAMINE HCL 100 MG TABLET PO SCH (09:01)
[2019-02-18] MEDS: DOCUSATE SODIUM 100 MG CAPSULE PO SCH (09:01)
[2019-02-18] MEDS: PANTOPRAZOLE SODIUM 40 MG DR TABLET PO SCH (09:01)
[2019-02-18] MEDS: MULTIVITAMINS WITH MINERALS, THERAPEUTIC TABLET PO SCH (09:02)
[2019-02-18] MEDS: FOLIC ACID 1 MG TABLET PO SCH (09:02)
[2019-02-18] MEDS: RIVAROXABAN 20 MG TABLET PO SCH (17:04)
== END 2019-02-18 17:15 | DRG 432 ==
LOC: EMS 09:11 → 5S 16:47
PROVIDERS: ADMIT Internal Medicine; ATTEND Internal Medicine
PROC: 30233R1 Transfusion of Nonautologous Platelets into Peripheral Vein, Percutaneous Approach (ICD-10-PCS; principal; 2019-02-15)
PROC: 30233R1 Transfusion of Nonautologous Platelets into Peripheral Vein, Percutaneous Approach (ICD-10-PCS; 2019-02-17)
PROC: 0W9G3ZZ Drainage of Peritoneal Cavity, Percutaneous Approach (ICD-10-PCS; 2019-02-17)
DX: K74.60 Unspecified cirrhosis of liver (principal); I50.23 Acute on chronic systolic (congestive) heart failure; R18.8 Other ascites; D68.9 Coagulation defect, unspecified; E44.0 Moderate protein-calorie malnutrition; E78.5 Hyperlipidemia, unspecified; E03.9 Hypothyroidism, unspecified; E66.9 Obesity, unspecified; I11.0 Hypertensive heart disease with heart failure; D69.6 Thrombocytopenia, unspecified; I25.5 Ischemic cardiomyopathy; I48.0 Paroxysmal atrial fibrillation; F10.10 Alcohol abuse, uncomplicated; I51.3 Intracardiac thrombosis, not elsewhere classified; I25.10 Atherosclerotic heart disease of native coronary artery without angina pectoris; I25.2 Old myocardial infarction; J44.9 Chronic obstructive pulmonary disease, unspecified; Z95.1 Presence of aortocoronary bypass graft; Z95.810 Presence of automatic (implantable) cardiac defibrillator; F17.200 Nicotine dependence, unspecified, uncomplicated; Z28.21 Immunization not carried out because of patient refusal; Z83.3 Family history of diabetes mellitus; Z82.49 Family history of ischemic heart disease and other diseases of the circulatory system; Z88.0 Allergy status to penicillin; Z88.8 Allergy status to other drugs, medicaments and biological substances; Z91.19 Patient's noncompliance with other medical treatment and regimen; Z68.37 Body mass index [BMI] 37.0-37.9, adult
CPT/HCPCS: 49083; 74018; 76700; 76942; 83615; 83735; 83986; 84157; 86850; 86900; 86901; 87015; 87070; 87081; 87101; 87205; 87206; 88108; 88312; 89051; 93005; 93306; 94640; 97116; 97162; 97167; 97530; J0282; J2060; J2270; J3430; J3475; J3490; J7040; J7050; J7060; P9035